=== PATIENT | male | born 1955 | race Caucasian/White ===

== ENCOUNTER 2016-07-18 10:59 | Day surgery (SDC) | payer BC ==
[2016-07-18] VITALS (15 sets, daily range): BP systolic 111–133; BP diastolic 60–68; PULSE 66–82; RESP 16–19
[~2016-07-18 10:59] MED LIST: CEFAZOLIN 1 GM INJ ONE; FENTAnyl 50 MCG/ML VIAL ONE; ROCURONIUM 50 MG INJ ONE; SUCCINYLCHOLINE CHLORIDE 100 MG/5 ML SYG IV ONE
[2016-07-18] MEDS ORDERED: metroNIDAZOLE 500 MG/NS (PMX) 100 ML IVPB ONE (13:30)
[2016-07-18] MEDS ORDERED: MIDAZOLAM 1 MG/ML 2 ML INJ ONE (13:30)
[2016-07-18] MEDS ORDERED: PROPOFOL 20 ML ONE (13:30)
[2016-07-18] MEDS ORDERED: DEXAMETHASONE 4 MG/ML 1 ML INJ ONE (13:31)
[2016-07-18] MEDS ORDERED: ONDANSETRON 4 MG INJ ONE (13:31)
[2016-07-18] MEDS ORDERED: FENTAnyl 50 MCG/ML VIAL ONE (13:31)
[2016-07-18] MEDS ORDERED: LIDOCAINE 2% JELLY 5 ML ONE (13:33)
[2016-07-18] MEDS ORDERED: BUPIVACAINE 0.5% 30 ML VIAL INJ ONE (14:15)
[2016-07-18] MEDS ORDERED: LIDOCAINE 1%/EPI 30 ML INJ INJ ONE (14:15)
[2016-07-18] MEDS ORDERED: MEPERIDINE 25 MG INJ IV PRN (14:30)
[2016-07-18] MEDS ORDERED: EPHEDrine SULFATE 50 MG/5 ML SYG IV PRN (14:30)
[2016-07-18] MEDS ORDERED: HYDROmorphONE (0.2 MG/ML) 10ML SYG IV PRN ×3 (14:30)
[2016-07-18] MEDS ORDERED: DIPHENHYDRAMINE 50 MG INJ IV PRN (14:30)
[2016-07-18] MEDS ORDERED: FENTAnyl 50 MCG/ML VIAL IV PRN (14:30)
[2016-07-18] MEDS ORDERED: ONDANSETRON 4 MG INJ IV PRN (14:30)
[2016-07-18] MEDS ORDERED: BUPIVACAINE 0.5% (SDV) 30 ML INJ ONE (14:35)
[2016-07-18] MEDS ORDERED: LIDOCAINE 1%/EPI 30 ML INJ ONE (14:35)
--- NOTE | 2016-07-18 15:38 | OPPN ---
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
--- NOTE | 2016-07-18 15:39 | PDOCDIS ---
Discharge Instructions DIAGNOSIS Discharge Diagnosis: Transverese colon polyp, fistula in ano CONDITION Patient Condition: Good HOME CARE INSTRUCTIONS: Diet Instructions: Regular ACTIVITY: Activity Restrictions: Slowly Increase Activity Bathing Restrictions: Tub Bath FOLLOW UP/APPOINTMENTS Appointments Call Dr. Zazueta's office ([phone]) to schedule a follow up appointment in 1 week. RAVINDRA ZAZUETA MD Jul 18, 2016 15:39
--- NOTE | 2016-07-18 16:26 | OPR ---
DATE OF OPERATION: 07/18/2016 PREOPERATIVE DIAGNOSES: 1. History of colon polyps. 2. Cruvmqp-ae-dps. POSTOPERATIVE DIAGNOSES: 1. Diminutive polyp in the proximal transverse colon. 2. Right posterior transsphincteric [id number]. PROCEDURE PERFORMED: 1. Colonoscopy with snare polypectomy. 2. Complex fistulotomy, with placement of draining Seton. SURGEON: Dr. Ravindra Zazueta ANESTHESIA: General endotracheal anesthesia. INDICATIONS FOR PROCEDURE: Mr. Alvarez is a 60-year-old gentleman with a history of colon polyps, who previously underwent a fistula surgery in December of 2012. Subsequently, unfortunately, the patient had a recurrent lygeyzn-ot-naw, and is requesting surgical intervention. The various treatment options were discussed with him and he elected to proceed with fistulotomy and placement of Seton. In addition, since the patient has a history of colon polyps and it had been at least 3 years since his last colonoscopy, I recommended he have a screening colonoscopy. Informed consent was obtained prior to the procedure. PROCEDURE IN DETAIL: The patient was brought to the operating room and placed in the supine position on the operating room table. After successful administration of general endotracheal anesthesia, the patient was repositioned in the left lateral decubitus position. Next, after a surgical time-out, a digital rectal examination was performed. This examination was normal. Next, the colonoscope was inserted into the patient's anus and passed proximally all the way to the patient's cecum. Identification of the cecum was confirmed by identification of both the ileocecal valve and the appendiceal orifice. Next, the colonoscope was gently withdrawn. The patient's cecum, ascending, transverse, descending, and sigmoid colon were carefully examined. During this examination the patient was found to have an approximately 3 to 4-mm polyp in his proximal transverse colon. This was removed in its entirety using a hot snare technique. Once hemostasis was assured, the remainder of the patient's colon was carefully examined. Next, the colonoscope was then withdrawn to the patient's rectum, which was examined in both antegrade and retrograde fashion with assistance with the retroflex technique, and this examination was normal. The colonoscope was then removed without event. Next, the patient was repositioned in the high lithotomy position using candy cane stirrups. Following this the patient's perineum and perianal skin were prepped and draped in the usual sterile fashion. Next, the patient underwent an anal block using a combination of 1% lidocaine with epinephrine and 0.5% Marcaine without epinephrine. This 50:50% combination local anesthetic was utilized in such a fashion as to infiltrate the subcutaneous tissue circumferentially at the anal verge. Next, using a Bustillo retractor, the patient's anal canal and distal rectum were examined in more detail. The patient was found to have an external opening of the fistula tract in the right posterior perianal skin. This was almost up on the patient's buttock. Whitish fluid was found to be emitting from this fistula tract. Next, with the Bustillo retractor in place, hydrogen peroxide was injected in the external opening of the fistula tract using an 18-gauge Angiocath. This revealed a posterior midline opening in the patient's anal canal from the bubbling of the hydrogen peroxide communicating with the external opening. Next the fistula probe was then passed from external to internal opening of the fistula and the patient was found to have a transsphincteric [id number]. Bovie electrocautery was then used to divide the skin and subcutaneous tissue medially from the external opening of the fistula tract until we reached the external sphincter. This was carefully dissected and preserved. Next the skin overlying the external sphincter and internal sphincter was then divided, again using Bovie electrocautery. The internal sphincter was then divided up to the internal opening of the fistula tract. This allowed for division of approximately the distal 1/2 of the internal sphincter. Next, the fistula probe was then replaced with 2-vessel loops that were sewn to themselves using 0 silk as a draining Seton. A curet spoon was then used to dbride the fistula tract and a specimen of this was sent off and labeled "fistula contents." Next, the external opening of the fistulotomy was then marsupialized by sewing the base of the fistula tract to the skin edges using interrupted 2-0 Vicryl suture. Bovie electrocautery was then used for hemostasis, as well as obliteration of the internal crypt, as the likely source of the fistula itself. Once hemostasis was assured and all counts were correct, the procedure was complete. Additional local anesthetic was injected at the fistulectomy site, again using the combination of lidocaine and Marcaine. The Bustillo retractor was removed without event. Dry gauze was applied to the patient's perianal skin and secured with paper tape. The patient was then returned to the supine position and anesthesia was discontinued. The patient was extubated in the operating room without complication. The patient was then transferred to the recovery room in stable condition. Total IV fluids given was 800 mL. Estimated blood loss was less than 50 mL. Specimens included a proximal transverse colon polyp, as well as fistula contents. Following the procedure, the patient was given standard post anorectal surgery convalescent instructions, as well as a prescription for Montague for pain. The patient was given instructions to follow up with Dr. Zazueta 1 week following discharge. Dictated By: RAVINDRA MOORE/MAX Conf#: [id number] DID#: [id number] MTDD
== END 2016-07-18 17:55 | disposition home or self-care (01) ==
LOC: SDS 10:59
PROVIDERS: ATTEND Colon & Rectal Surgery
DX: D12.3 Benign neoplasm of transverse colon (principal); K60.5 Anorectal fistula; I10 Essential (primary) hypertension; J44.9 Chronic obstructive pulmonary disease, unspecified; Z86.718 Personal history of other venous thrombosis and embolism
CPT/HCPCS: 45380; 46270; J0330; J0690; J1100; J2250; J2405; J3010

== ENCOUNTER → 2016-12-02 | Outpatient (CLI) | payer BC ==
[2016-12-02 13:06] LABS: ADD SCAN DIFF NO
[2016-12-02 13:19] LABS: BASOPHIL # 0.1 10^3/ul (0.0-0.1); BASOPHILS % 0.8 % (0.0-2.0); EOSINOPHILS # 0.1 10^3/ul (0.0-0.5); EOSINOPHILS % 2.2 % (0.0-7.0); HEMATOCRIT 46.1 % (42.0-52.0); HEMOGLOBIN 16.2 g/dl (14.0-18.0); LYMPHOCYTES % 32.9 % (15.0-51.0); MEAN CORPUSCULAR HEMOGLOBIN 31.2 pg (29.0-33.0); MEAN CORPUSCULAR HGB CONC 35.1 g/dl (32.0-37.0); MEAN CORPUSCULAR VOLUME 88.7 fl (82.0-101.0); MEAN PLATELET VOLUME 9.9 fl (7.4-10.4); MONOCYTE # 0.4 10^3/ul (0.3-0.9); MONOCYTES % 6.5 % (0.0-11.0); NEUTROPHIL # 3.4 10^3/ul (1.6-7.5); NEUTROPHILS % 57.3 % (39.0-77.0); PLATELET COUNT 231 10^3/UL (140-415); RED CELL DISTRIBUTION WIDTH 12.9 % (11.5-14.5)
[2016-12-02 13:25] LABS: ALBUMIN 4.2 g/dl (3.3-4.9)
[2016-12-02 13:26] LABS: POTASSIUM 3.8 mmol/L (3.5-5.1)
[2016-12-02 13:28] LABS: ALBUMIN/GLOBULIN RATIO 1.31; CREATININE 0.71 mg/dl (0.61-1.24); TOTAL PROTEIN 7.4 g/dl (6.1-8.1)
[2016-12-02 13:29] LABS: CALCIUM 9.2 mg/dl (8.4-10.2); CHOL/HDL RATIO 3.8 RATIO
[2016-12-02 13:34] LABS: INR 1.82; PROTIME 21.2 Sec (12.2-14.2); PT RATIO 1.7
== END | disposition home or self-care (01) ==
LOC: LAB 12:50
PROVIDERS: ATTEND Internal Medicine
DX: E78.5 Hyperlipidemia, unspecified (principal); D68.59 Other primary thrombophilia
CPT/HCPCS: 80053; 80061; 85025; 85610

== ENCOUNTER → 2017-01-07 | Outpatient (CLI) | payer BC ==
[2017-01-07 12:34] LABS: ADD SCAN DIFF NO
[2017-01-07 12:36] LABS: BASOPHIL # 0.1 10^3/ul (0.0-0.1); BASOPHILS % 0.6 % (0.0-2.0); EOSINOPHILS # 0.1 10^3/ul (0.0-0.5); EOSINOPHILS % 1.8 % (0.0-7.0); HEMATOCRIT 48.1 % (42.0-52.0); LYMPHOCYTES # 2.3 10^3/ul (0.8-2.9); LYMPHOCYTES % 28.8 % (15.0-51.0); MEAN CORPUSCULAR HEMOGLOBIN 30.9 pg (29.0-33.0); MEAN CORPUSCULAR HGB CONC 35.3 g/dl (32.0-37.0); MEAN CORPUSCULAR VOLUME 87.5 fl (82.0-101.0); MEAN PLATELET VOLUME 9.8 fl (7.4-10.4); MONOCYTE # 0.7 10^3/ul (0.3-0.9); MONOCYTES % 8.3 % (0.0-11.0); NEUTROPHIL # 4.7 10^3/ul (1.6-7.5); NEUTROPHILS % 60.2 % (39.0-77.0); PLATELET COUNT 244 10^3/UL (140-415); RED CELL DISTRIBUTION WIDTH 13.3 % (11.5-14.5); WHITE BLOOD COUNT 7.8 10^3/ul (4.8-10.8)
[2017-01-07 12:54] LABS: ALBUMIN 4.9 g/dl (3.3-4.9); ALBUMIN/GLOBULIN RATIO 1.63; BILIRUBIN,INDIRECT 1.6 mg/dl (0-1.1); BILIRUBIN,TOTAL 1.6 mg/dl (0.2-1.3); CALCIUM 9.7 mg/dl (8.4-10.2); CREATININE 0.81 mg/dl (0.61-1.24); POTASSIUM 3.9 mmol/L (3.5-5.1); TOTAL PROTEIN 7.9 g/dl (6.1-8.1)
[2017-01-07 12:55] LABS: INR 1.74; PROTIME 20.5 Sec (12.2-14.2); PT RATIO 1.6
== END | disposition home or self-care (01) ==
LOC: LAB 12:09
PROVIDERS: ATTEND Internal Medicine
DX: D68.59 Other primary thrombophilia (principal)
CPT/HCPCS: 80053; 85025; 85610

== ENCOUNTER → 2017-09-04 | Outpatient (CLI) | END | disposition home or self-care (01) ==

== ENCOUNTER → 2018-04-15 | Outpatient (CLI) | END | disposition home or self-care (01) ==

== ENCOUNTER → 2018-09-30 | Outpatient (CLI) | payer BC | END | disposition home or self-care (01) | LOC: LAB 09:31 | PROVIDERS: ATTEND Internal Medicine | DX: J44.9 Chronic obstructive pulmonary disease, unspecified (principal); D68.59 Other primary thrombophilia; E78.5 Hyperlipidemia, unspecified | CPT/HCPCS: 71046; 80053; 80061; 84153; 84154; 85025; 85610 ==

== ENCOUNTER 2018-10-20 10:58 | Inpatient (IN) | payer BC ==
[~2018-10-20] VITALS: Ht 180.3 cm; Wt 104.5 kg
[2018-10-20 11:18] VITALS: Ht 180.3 cm; Wt 104.5 kg
[2018-10-20] MEDS ORDERED: SOD CHLORIDE 0.9% 1,000 ML IV STA (11:24)
[2018-10-20] MEDS ORDERED: ONDANSETRON 4 MG INJ IV STA (11:24)
[2018-10-20] MEDS ORDERED: morphine 4 MG/ML VIAL IV STA ×2 (11:24→14:04)
[2018-10-20] MEDS ORDERED: WARF2.5T PO (11:47)
[2018-10-20] MEDS ORDERED: SIMV40TA2 PO (11:47)
[2018-10-20] MEDS ORDERED: WARF10TA PO (11:47)
[2018-10-20] MEDS ORDERED: IOHEXOL 300MG/ML 150 ML BTL ONE (13:32)
[2018-10-20] MEDS ORDERED: SOD CHLORIDE 0.9% 100 ML ONE (13:32)
--- NOTE | 2018-10-20 13:52 | ERD ---
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 The patient describes subjective fevers 1-2 days ago but none currently. The pain is moderate, throbbing and worse with bowel movement. He was sent by his surgeon, Dr. Zazueta for further investigation. ROS All systems reviewed and are negative except as per history of present illness. Medications Home Meds Reported Medications Simvastatin* (Zocor*) 40 Mg Tablet, 40 MG PO QHS, #30 TAB 10/20/18 Warfarin Sodium* (Coumadin*) 10 Mg Tablet, 10 MG PO DAILY, TAB 10/20/18 Warfarin Sodium* (Coumadin*) 2.5 Mg Tablet, 2.5 MG PO DAILY, TAB 10/20/18 Allergies Allergies: Coded Allergies: No Known Allergies (Verified Allergy, Mild, 10/20/18) PMhx/Soc History of Surgery: Yes (RECTAL ABCESS SURGERY ) Anesthesia Reaction: No Hx Neurological Disorder: No Hx Respiratory Disorders: No Hx Cardiac Disorders: Yes (HIGH CHOLESTEROL ) Hx Psychiatric Problems: No Hx Miscellaneous Medical Probl: Yes (H/O DVT ) Hx Alcohol Use: No Hx Substance Use: No Hx Tobacco Use: Yes Smoking Status: Current some day smoker FmHx Family History: No diabetes Physical Exam Vitals Vital Signs Date Temp Pulse Resp B/P (MAP) Pulse Ox O2 O2 Flow FiO2 Time Delivery Rate 10/20/18 68 18 107/63 98 Room Air 12:53 (78) 10/20/18 98.5 65 18 122/57 98 11:18 (78) Physical Exam General: Well developed, well nourished, no acute distress Head: Normocephalic, atraumatic. Eyes: Pupils equally reactive, EOM intact ENT: Moist mucous membranes Neck: Supple, no lymphadenopathy Respiratory: Lungs clear bilaterally, no distress Cardiovascular: RRR, no murmurs, rubs, or gallops Abdominal: Soft, non-tender, non-distended, no peritoneal signs : Digital rectal examination reveals tenderness and mild induration and fluctuance to the posterior aspect, non tender prostate MSK: No edema, no unilateral swelling, 5/5 strength Neurologic: Alert and oriented, moving all extremities, normal speech, no focal weakness, no cerebellar signs Skin: No rash Psych: Normal mood Result Diagram: 10/20/18 1135 10/20/18 1136 Results 24 hrs Laboratory Tests Test 10/20/18 11:35 10/20/18 11:36 White Blood Count 15.7 10^3/ul Red Blood Count 4.78 10^6/ul Hemoglobin 14.6 g/dl Hematocrit 43.1 % Mean Corpuscular Volume 90.2 fl Mean Corpuscular Hemoglobin 30.5 pg Mean Corpuscular Hemoglobin Concent 33.9 g/dl Red Cell Distribution Width 13.2 % Platelet Count 196 10^3/UL Mean Platelet Volume 10.5 fl Immature Granulocytes % 0.600 % Neutrophils % 84.4 % Lymphocytes % 7.9 % Monocytes % 6.7 % Eosinophils % 0.1 % Basophils % 0.3 % Nucleated Red Blood Cells % 0.0 /100WBC Immature Granulocytes # 0.090 10^3/ul Neutrophils # 13.2 10^3/ul Lymphocytes # 1.2 10^3/ul Monocytes # 1.1 10^3/ul Eosinophils # 0.0 10^3/ul Basophils # 0.1 10^3/ul Nucleated Red Blood Cells # 0.0 10^3/ul Prothrombin Time 23.5 Sec Prothrombin Time Ratio 1.8 INR International Normalized Ratio 2.08 Activated Partial Thromboplast Time 46.2 Sec Sodium Level 140 mmol/L Potassium Level 4.1 mmol/L Chloride Level 106 mmol/L Carbon Dioxide Level 28 mmol/L Anion Gap 6 Blood Urea Nitrogen 13 mg/dl Creatinine 0.91 mg/dl Est Glomerular Filtrat Rate mL/min > 60 mL/min Glucose Level 130 mg/dl Calcium Level 9.2 mg/dl Current Medications Medications Dose Sig/Yobani Start Time Status Last (Trade) Ordered Route PRN Stop Time Admin Dose Reason Admin Sodium 1,000 ml @ Q1H STAT 10/20/18 DC 10/20/18 Chloride 1,000 mls/hr IV 11:24 10/20/18 11:36 12:23 Morphine 4 mg ONCE STAT 10/20/18 DC 10/20/18 Sulfate IV 11:24 10/20/18 11:37 (morphine) 11:26 Ondansetron 4 mg ONCE STAT 10/20/18 DC 10/20/18 HCl (Zofran IV 11:24 10/20/18 11:36 Inj) 11:27 IV Flush 10 ml STK-MED 10/20/18 DC (NS 10 ml) ONCE .ROUTE 13:32 10/20/18 13:33 Sodium 100 ml @ ud STK-MED 10/20/18 DC Chloride ONCE .ROUTE 13:32 10/20/18 13:33 Iohexol 150 ml STK-MED 10/20/18 DC (Omnipaque ONCE .ROUTE 13:32 10/20/18 300mg/ ml) 13:33 Morphine 4 mg ONCE STAT 10/20/18 DC 10/20/18 Sulfate IV 14:04 10/20/18 14:10 (morphine) 14:05 Piperacillin 100 ml @ ONCE ONCE 10/20/18 Sod/ 200 mls/hr IVPB 14:30 10/20/18 Tazobactam 14:59 Sod Procedures/MDM EKG, MONITORS, & DIAGNOSTIC IMAGING: CT abdomen and pelvis with IV contrast IMPRESSION: 1. LARGE PERIRECTAL/PERIANAL ABSCESS, MEASURING 7.0 X 7.0 X 5.8 CM WITH ADJACENT FATTY STRANDING. THERE IS FATTY STRANDING INVOLVING THE ADJACENT SUBCUTANEOUS SOFT TISSUES OF THE BUTTOCKS. PRESACRAL AND PERIRECTAL FATTY STRANDING AND FLUID IS NOTED. 2. No evidence of obstruction. The appendix is within normal limits. 3. Generalized ectasia and atherosclerotic disease of the aorta. 4. Multilevel degenerative disease of the lumbosacral spine with grade 1 retrolisthesis of L3-L4 and L4-L5. 5. Multiple bilateral renal cysts. No gross renal/ureteric calculi. No evidence of obstructive uropathy. Call report was made with Dr. Ellis @ 2:10 PM on 09/19/18 RPTAT: AAPP LAB INTERPRETATION: I reviewed the laboratory testing and it shows slight leukocytosis MEDICAL DECISION MAKING: The patient is right at risk for perirectal abscess given clinical exam and history. The patient additionally has history of fistula, consider worsening fistulous tract. CT imaging with IV contrast would be appropriate. At this time the patient has no fever, no indication for antibiotics, continue to monitor and I will discussed the case with the referring surgeon. ER COURSE: * Sirs criteria is not met in the emergency room. CT showing evidence of large abscess. * Broad-spectrum antibiotic in the form of Zosyn provided. * Dr. Zazueta has been paged. * Patient informed of findings and likely surgical intervention CONSULTATION: None DISPOSITION PLAN: Accepting care team and consultations: I discussed the current laboratory data, diagnostic imaging and emergency care provided. Admitting team: Dr. Arias Admitting team indication: Insurance directed Departure Diagnosis: Primary Impression: Perianal abscess Additional Impression: Leukocytosis Leukocytosis type: unspecified Qualified Codes: D72.829 - Elevated white blood cell count, unspecified Condition: Stable ROMEO RECIO MD Oct 20, 2018 13:52
[2018-10-20] MEDS ORDERED: PIPER-TAZO 3.375 GM IV (PMX) 100 ML IVPB ONE (14:30)
[2018-10-20] MEDS ORDERED: ONDANSETRON 4 MG INJ IV PRN ×2 (15:00→19:00)
[2018-10-20] MEDS ORDERED: ACETAMINOPHEN 325 MG TAB PO PRN (15:00)
[2018-10-20] MEDS ORDERED: VANCOMYCIN 1 GM (PMX) 250 ML IVPB ONE (18:30)
[2018-10-20] MEDS ORDERED: VANCOMYCIN IV PER PHARMACY XX SCH (18:30)
[2018-10-20 18:40] VITALS: BP 117/66; PULSE 76; RESP 20
[2018-10-20] MEDS: PIPER-TAZO 3.375 GM IV (PMX) 100 ML IVPB SCH (19:43)
[2018-10-20] MEDS: morphine 4 MG/ML VIAL IV PRN (19:48)
[2018-10-20 20:00] VITALS: BP 116/59; PULSE 62; RESP 18
[2018-10-20] MEDS ORDERED: VANCOMYCIN HCL 2 GM in SOD CHLORIDE 0.9% 500 ML IVPB SCH (20:30)
--- NOTE | 2018-10-20 20:53 | HP ---
DATE OF ADMISSION: 10/20/2018 CHIEF COMPLAINT AND HISTORY OF PRESENT ILLNESS: The patient is a 63-year-old gentleman who is well k nown to me from previous followup with prior history of Teri's gangrene and history of fistula in ano, status post prior surgeries including complex fistulotomy done in 07/18/[address] Manzanares and pinky ng has been doing fairly well. In the last 2 days, he has been having fevers with severe rectal p ain. The patient was seen by Dr. Manzanares and was referred to the emergency room. The patient was seen in the emergency room and had a CAT scan performed confirming large perirectal, perianal abscess and the patient was admitted. REVIEW OF SYSTEMS: HEAD: No headaches or focal weakness or numbness. No history of strokes. EYES: No blurry vision or glaucoma. ENT: Noncontributory. No history of hoarseness. NECK: No history of thyroid disease. CHEST: Smoked a pack a day and has cut down recently. History of sleep apnea on nasal CPAP. CARDIOVASCULAR: No PND, orthopnea. No prior history of [place] or angina. History of hyperlipidemia. GASTROINTESTINAL: No constipation, diarrhea, change in bowel habits. Recent rectal pain as above. No history of rectal bleed. Prior history of colon polyps. GENITOURINARY: No dysuria, hematuria, kidney stones. MEDICATIONS: Include: 1. Simvastatin 40 mg p.o. daily. 2. Coumadin 12.5 mg p.o. daily. PAST MEDICAL HISTORY: The patient does have history of hypercoagulable state with factor V Leiden po sitive. The patient also has chronic venous stasis, dermatitis of lower extremities with prior histo ry of ulcers. SOCIAL HISTORY: The patient works as a nurse's aide. He is , has 7 children. No history of ethanol abuse. Smoking as above. PHYSICAL EXAMINATION: GENERAL: The patient is an average-built male. VITAL SIGNS: Febrile to 100.7, blood pressure 117/66, O2 sats 94% on room air. HEENT: Head is normocephalic. No pallor, cyanosis or icterus. Tongue is coated, moist. NECK: Supple. No thyromegaly, bruits or lymphadenopathy. CHEST: Decreased breath sounds at bases. HEART: S1, S2 heard. No definite gallops. ABDOMEN: Soft, nontender, no hepatosplenomegaly. RECTAL: Deferred at patient's request. EXTREMITIES: A 2+ edema of lower extremities. Homans sign is negative. NEUROLOGIC: No localizing or lateralizing signs. LABORATORY DATA: WBC count 15.7, hematocrit 43.1, platelet 196,000. Sodium 140, potassium 4.1, BUN 13, creatinine 0.91. PT/INR is 2.08, PTT 46.2. DIAGNOSTIC DATA: CT of the abdomen and pelvis shows a large perirectal, perianal abscess measuring 7 x 7 x 5.8 cm with adjacent fatty stranding. Appendix is normal. No evidence of obstruction. IMPRESSION: 1. Perirectal abscess, prior history of Teri's gangrene with fistula. 2. Chronic obstructive pulmonary disease. 3. Obstructive sleep apnea on CPAP. 4. Hyperlipidemia. 5. Chronic venous stasis, dermatitis of lower extremities. 6. Thrombophilia with positive factor V Leiden. PLAN: We will admit the patient to med-surg. Obtain blood cultures to rule out bacteremia. Start t he patient empirically on a course of vancomycin and Zosyn. We will request ID consultation with Dr. Fernández and surgical consultation with Dr. Manzanares. We will follow their recommendations. We will also a rrange for CPAP when he sleeps. Dictated By: JERMAN JAMES MD SR/NTS Conf#: [id number] DID#: [id number] CC: RAVINDRA MANZANARES MD;*End*
[2018-10-20] MEDS: ATORVASTATIN 20 MG TAB PO SCH (21:09)
[2018-10-20] MEDS: ACETAMINOPHEN 325 MG TAB PO PRN (21:40)
[2018-10-21] VITALS (9 sets, daily range): BP systolic 90–110; BP diastolic 46–58; PULSE 61–75; RESP 17–19
[2018-10-21] MEDS: PIPER-TAZO 3.375 GM IV (PMX) 100 ML IVPB SCH ×4 (01:11→17:49)
[2018-10-21] MEDS: morphine 4 MG/ML VIAL IV PRN ×5 (02:00→21:02)
--- NOTE | 2018-10-21 07:07 | CONS ---
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 currently get swab from small ulcer (skin tear) in area continue with vanco/zosyn pt will need surgery and his coumadin has been stopped 2) hyperlipidemia 3) hypercoagulable state Consultation Date/Type/Reason Admit Date/Time Oct 20, 2018 at 14:35 Date of Consultation: Oct 21, 2018 Type of Consult ID Date/Time of Note DATE: 10/21/18 TIME: 07:00 Hx of Present Illness pt admitted due to rectal pain since friday (3 days ago) on friday he noticed some drainage from the site but yesterday and today no drainage noted He denies F, C, NS no scrotal swelling or pain no SOB, cough, sore throat, Past Medical History hypercoagulable state, florentin's gangrene, hyperlipidemia Home Meds Reported Medications Simvastatin* (Zocor*) 40 Mg Tablet, 40 MG PO QHS, #30 TAB 10/20/18 Warfarin Sodium* (Coumadin*) 10 Mg Tablet, 10 MG PO DAILY, TAB 10/20/18 Warfarin Sodium* (Coumadin*) 2.5 Mg Tablet, 2.5 MG PO DAILY, TAB 10/20/18 Medications Current Medications Ondansetron HCl (Zofran Inj) 4 mg BRIDGE ORDER PRN IV NAUSEA/VOMITING; Start 10/20/18 at 15:00; Stop 10/21/18 at 14:59 Acetaminophen (Tylenol Tab) 650 mg ER BRIDGE PRN PO .MILD PAIN 1-3 OR TEMP Last administered on 10/20/18at 17:33; Admin Dose 650 MG; Start 10/20/18 at 15:00; Stop 10/21/18 at 14:59 Vancomycin HCl (Vanco Iv Per Pharmacy) VANCOMYCIN PER PHARMACY PER PROTOCOL XX ; Start 10/20/18 at 18:30 Piperacillin Sod/ Tazobactam Sod 100 ml @ 200 mls/hr Q6 IVPB Last administered on 10/21/18at 06:02; Admin Dose 200 MLS/HR; Start 10/20/18 at 20:00 Morphine Sulfate (morphine) 4 mg Q4H PRN IV .SEVERE PAIN 7-10 Last administered on 10/21/18at 05:41; Admin Dose 4 MG; Start 10/20/18 at 18:30 Acetaminophen (Tylenol Tab) 650 mg Q4H PRN PO .MILD TO MOD PAIN OR T>101 Last administered on 10/20/18at 21:40; Admin Dose 650 MG; Start 10/20/18 at 18:30 Atorvastatin Calcium (Lipitor) 20 mg DAILY@21 PO Last administered on 10/20/18at 21:09; Admin Dose 20 MG; Start 10/20/18 at 21:00 Ondansetron HCl (Zofran Inj) 4 mg Q4H PRN IV NAUSEA AND/OR VOMITING; Start 10/20/18 at 19:00 Vancomycin HCl 1.5 gm/Sodium Chloride 250 ml @ 83.333 mls/ hr Q12H IVPB ; Start 10/21/18 at 08:30 Allergies: Coded Allergies: No Known Allergies (Verified Allergy, Mild, 10/20/18) Past Surgical History ano fistula surgery Social History Smoking Status: Former smoker Exam/Review of Systems Exam Vitals Vital Signs Date Temp Pulse Resp B/P (MAP) Pulse Ox O2 O2 Flow FiO2 Time Delivery Rate 10/21/18 63 98 30 04:28 10/21/18 97.4 18 104/56 02:00 (72) 10/20/18 Room Air 18:40 Intake and Output 10/20/18 10/20/18 10/21/18 1515:00 23:00 07:00 IntakeIntake Total 100 ml 600 ml BalanceBalance 100 ml 600 ml Constitutional: alert, oriented Eyes: nl sclera ENMT: mucosa pink and moist Respiratory: clear to auscultation Cardiovascular: regular rate and rhythm Gastrointestinal: soft, non-tender Genitourinary - Male: other (no scrotal sweling or redness, kadeem-anal area has some swelling on L side and a central small skin tear in crack superior to anus, no redness) Results Result Diagram: 10/20/18 1135 10/20/18 1136 Results 24hrs Laboratory Tests Test 10/20/18 11:35 10/20/18 11:36 White Blood Count 15.7 #H Red Blood Count 4.78 Hemoglobin 14.6 Hematocrit 43.1 Mean Corpuscular Volume 90.2 Mean Corpuscular Hemoglobin 30.5 Mean Corpuscular Hemoglobin Concent 33.9 Red Cell Distribution Width 13.2 Platelet Count 196 # Mean Platelet Volume 10.5 H Immature Granulocytes % 0.600 H Neutrophils % 84.4 H Lymphocytes % 7.9 L Monocytes % 6.7 Eosinophils % 0.1 Basophils % 0.3 Nucleated Red Blood Cells % 0.0 Immature Granulocytes # 0.090 H Neutrophils # 13.2 H Lymphocytes # 1.2 Monocytes # 1.1 H Eosinophils # 0.0 Basophils # 0.1 Nucleated Red Blood Cells # 0.0 Prothrombin Time 23.5 H Prothrombin Time Ratio 1.8 INR International Normalized Ratio 2.08 Activated Partial Thromboplast Time 46.2 H Sodium Level 140 Potassium Level 4.1 Chloride Level 106 Carbon Dioxide Level 28 Anion Gap 6 Blood Urea Nitrogen 13 Creatinine 0.91 Est Glomerular Filtrat Rate mL/min > 60 Glucose Level 130 Calcium Level 9.2 Medications Medication Current Medications Ondansetron HCl (Zofran Inj) 4 mg BRIDGE ORDER PRN IV NAUSEA/VOMITING; Start 10/20/18 at 15:00; Stop 10/21/18 at 14:59 Acetaminophen (Tylenol Tab) 650 mg ER BRIDGE PRN PO .MILD PAIN 1-3 OR TEMP Last administered on 10/20/18at 17:33; Admin Dose 650 MG; Start 10/20/18 at 15:00; Stop 10/21/18 at 14:59 Vancomycin HCl (Vanco Iv Per Pharmacy) VANCOMYCIN PER PHARMACY PER PROTOCOL XX ; Start 10/20/18 at 18:30 Piperacillin Sod/ Tazobactam Sod 100 ml @ 200 mls/hr Q6 IVPB Last administered on 10/21/18 06:02; Admin Dose 200 MLS/HR; Start 10/20/18 at 20:00 Morphine Sulfate (morphine) 4 mg Q4H PRN IV .SEVERE PAIN 7-10 Last administered on 10/21/18at 05:41; Admin Dose 4 MG; Start 10/20/18 at 18:30 Acetaminophen (Tylenol Tab) 650 mg Q4H PRN PO .MILD TO MOD PAIN OR T>101 Last administered on 10/20/18at 21:40; Admin Dose 650 MG; Start 10/20/18 at 18:30 Atorvastatin Calcium (Lipitor) 20 mg DAILY@21 PO Last administered on 10/20/18at 21:09; Admin Dose 20 MG; Start 10/20/18 at 21:00 Ondansetron HCl (Zofran Inj) 4 mg Q4H PRN IV NAUSEA AND/OR VOMITING; Start 10/20/18 at 19:00 Vancomycin HCl 1.5 gm/Sodium Chloride 250 ml @ 83.333 mls/ hr Q12H IVPB ; Start 10/21/18 at 08:30 JOSEPH KENNEDY MD Oct 21, 2018 07:07
[2018-10-21] MEDS: VANCOMYCIN HCL 1.5 GM in SOD CHLORIDE 0.9% 250 ML IVPB SCH ×2 (09:13→21:02)
--- NOTE | 2018-10-21 12:44 | CONS ---
Assessment/Plan Assessment/Plan Assessment/Plan (Daily) Mr. Alvarez presents with a perianal/perirectal abscess. He is on Coumadin at home for a hypercoagulable state and though he has edema in his lower extremities, his venous duplex today is negative for DVT. I've recommended we correct his anticoagulation and I've scheduled him for drainage of his abscess tomorrow evening at 6:30 pm. He has agreed with this plan. Consultation Date/Type/Reason Admit Date/Time Oct 20, 2018 at 14:35 Date of Consultation: Oct 21, 2018 Type of Consult Colorectal Surgery Reason for Consultation Perirectal abscess Date/Time of Note DATE: 10/21/18 TIME: 12:34 Hx of Present Illness Mr. 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 I was unable to identify an obvious source of infection in my office, so I referred him to the Emergency Department for further workup. Once here, he was found to have leukocytosis and CT scan evidence of a large perianal/perirectal abscess. He reports that since arriving here, his pain is under better control and his fevers have resolved. Constitutional: chills, febrile Eyes: no complaints ENT: no complaints Respiratory: no complaints Cardiovascular: no complaints Gastrointestinal: other (Rectal pain) Genitourinary: no complaints Musculoskeletal: no complaints Skin: no complaints Neurologic: no complaints Psychological: no complaints, nl mood/affect Past Medical History Medical History: deep vein thrombosis, other (Hypercoaguable state) Home Meds Reported Medications Simvastatin* (Zocor*) 40 Mg Tablet, 40 MG PO QHS, #30 TAB 10/20/18 Warfarin Sodium* (Coumadin*) 10 Mg Tablet, 10 MG PO DAILY, TAB 10/20/18 Warfarin Sodium* (Coumadin*) 2.5 Mg Tablet, 2.5 MG PO DAILY, TAB 10/20/18 Medications Current Medications Vancomycin HCl (Vanco Iv Per Pharmacy) VANCOMYCIN PER PHARMACY PER PROTOCOL XX ; Start 10/20/18 at 18:30 Piperacillin Sod/ Tazobactam Sod 100 ml @ 200 mls/hr Q6 IVPB Last administered on 10/21/18 06:02; Admin Dose 200 MLS/HR; Start 10/20/18 at 20:00 Morphine Sulfate (morphine) 4 mg Q4H PRN IV .SEVERE PAIN 7-10 Last administered on 10/21/18 09:54; Admin Dose 4 MG; Start 10/20/18 at 18:30 Acetaminophen (Tylenol Tab) 650 mg Q4H PRN PO .MILD TO MOD PAIN OR T>101 Last administered on 10/20/18 21:40; Admin Dose 650 MG; Start 10/20/18 at 18:30 Atorvastatin Calcium (Lipitor) 20 mg DAILY@21 PO Last administered on 10/20/18 21:09; Admin Dose 20 MG; Start 10/20/18 at 21:00 Ondansetron HCl (Zofran Inj) 4 mg Q4H PRN IV NAUSEA AND/OR VOMITING; Start 10/20/18 at 19:00 Vancomycin HCl 1.5 gm/Sodium Chloride 250 ml @ 83.333 mls/ hr Q12H IVPB Last administered on 10/21/18 09:13; Admin Dose 83.333 MLS/HR; Start 10/21/18 at 08:30 Allergies: Coded Allergies: No Known Allergies (Verified Allergy, Mild, 10/20/18) Past Surgical History Two previous anal fistula surgeries Family History Significant Family History: no pertinent family hx Social History Smoking Status: Former smoker Drug Use: none Exam/Review of Systems Exam Vitals Vital Signs Date Temp Pulse Resp B/P (MAP) Pulse Ox O2 O2 Flow FiO2 Time Delivery Rate 10/21/18 98.7 61 19 90/52 (65) 95 Room Air 08:06 10/21/18 30 04:28 Intake and Output 10/20/18 10/20/18 10/21/18 1515:00 23:00 07:00 IntakeIntake Total 100 ml 600 ml OutputOutput Total 300 ml BalanceBalance 100 ml 300 ml Constitutional: alert, oriented, well developed Psych: no complaints, nl mood/affect Head: normocephalic Eyes: nl conjunctiva ENMT: nl external ears & nose Neck: supple Respiratory: clear to auscultation Cardiovascular: regular rate and rhythm, nl pulses Gastrointestinal: soft, non-tender, surgical scars (in right posterior perianal skin) Musculoskeletal: nl extremities to inspection Extremities: normal pulses, edema (in right lower extremity) Neurological: nl mental status, nl speech Skin: nl turgor Results Result Diagram: 10/21/18 0645 10/21/18 0645 Results 24hrs Laboratory Tests Test 10/21/18 06:45 White Blood Count 15.3 H Red Blood Count 4.42 L Hemoglobin 13.4 L Hematocrit 40.4 L Mean Corpuscular Volume 91.4 Mean Corpuscular Hemoglobin 30.3 Mean Corpuscular Hemoglobin Concent 33.2 Red Cell Distribution Width 13.2 Platelet Count 185 Mean Platelet Volume 11.0 H Immature Granulocytes % 0.700 H Neutrophils % 85.3 H Lymphocytes % 7.0 L Monocytes % 6.5 Eosinophils % 0.1 Basophils % 0.4 Nucleated Red Blood Cells % 0.0 Immature Granulocytes # 0.110 H Neutrophils # 13.0 H Lymphocytes # 1.1 Monocytes # 1.0 H Eosinophils # 0.0 Basophils # 0.1 Nucleated Red Blood Cells # 0.0 Prothrombin Time 25.1 H Prothrombin Time Ratio 2.0 INR International Normalized Ratio 2.27 Activated Partial Thromboplast Time 54.8 H Sodium Level 140 Potassium Level 3.8 Chloride Level 108 Carbon Dioxide Level 26 Anion Gap 6 Blood Urea Nitrogen 17 Creatinine 0.89 Est Glomerular Filtrat Rate mL/min > 60 Glucose Level 133 Calcium Level 8.8 Total Bilirubin 1.2 Direct Bilirubin 0.00 Indirect Bilirubin 1.2 H Aspartate Amino Transf (AST/SGOT) 19 Alanine Aminotransferase (ALT/SGPT) 20 Alkaline Phosphatase 83 Total Protein 6.5 Albumin 3.6 Globulin 2.90 Albumin/Globulin Ratio 1.24 Medications Medication Current Medications Vancomycin HCl (Vanco Iv Per Pharmacy) VANCOMYCIN PER PHARMACY PER PROTOCOL XX ; Start 10/20/18 at 18:30 Piperacillin Sod/ Tazobactam Sod 100 ml @ 200 mls/hr Q6 IVPB Last administered on 10/21/18at 06:02; Admin Dose 200 MLS/HR; Start 10/20/18 at 20:00 Morphine Sulfate (morphine) 4 mg Q4H PRN IV .SEVERE PAIN 7-10 Last administered on 10/21/18at 09:54; Admin Dose 4 MG; Start 10/20/18 at 18:30 Acetaminophen (Tylenol Tab) 650 mg Q4H PRN PO .MILD TO MOD PAIN OR T>101 Last administered on 10/20/18at 21:40; Admin Dose 650 MG; Start 10/20/18 at 18:30 Atorvastatin Calcium (Lipitor) 20 mg DAILY@21 PO Last administered on 10/20/18at 21:09; Admin Dose 20 MG; Start 10/20/18 at 21:00 Ondansetron HCl (Zofran Inj) 4 mg Q4H PRN IV NAUSEA AND/OR VOMITING; Start 10/20/18 at 19:00 Vancomycin HCl 1.5 gm/Sodium Chloride 250 ml @ 83.333 mls/ hr Q12H IVPB Last administered on 10/21/18at 09:13; Admin Dose 83.333 MLS/HR; Start 10/21/18 at 08:30 RAVINDRA MANZANARES MD Oct 21, 2018 12:44
--- NOTE | 2018-10-21 13:00 | RADRPT ---
Vent Rate: 64 bpm RR Interval: 0 msec MA Interval: 154 msec QRS Duration: 98 msec QT Interval: 382 msec QTC Interval: 394 msec P-R-T [place]: 63 - 46 - 74 degrees Normal sinus rhythm Normal ECG Electronically Signed By: Dakota Roche
--- NOTE | 2018-10-21 13:45 | PREAC ---
Date/Time of Note Date/Time of Note DATE: 10/21/18 TIME: 13:39 Anesthesia Eval and Record Evaluation Time Pre-Procedure Interview DATE: 10/21/18 TIME: 13:39 Age 63 Sex male NPO: Other (instructed patient that required fasting time is minimum of 8 hours, verbalized understanding.) Preoperative diagnosis Fornier's gangrene, anal fistula Planned procedure proctosigmoidoscopy, I&D perianal/ rectal abscess Past Medical History Past Medical History: Includes Cardio: Dyslipidemia, Other (chronic venous stasis, hypercoagulable state, Factor V Leiden deficiency, thrombophilia, on chronic coumadin therapy. Plan per Dr Zazueta is to correct effects of Coumadin prior to surgery.) Pulm: COPD (cig smoker, last smoked last week. ), Sleep Apnea (on CPAP at home ) GI: Obesity (BMI 32) Heme: Coagulation disorder (Factor V Leiden) Surgery & Anesthesia Issues No known issue (hx 2 anorectal procedures) Meds Anticoagulation: Yes (COUMADIN) Beta Jb within 24 hr: No Reason Beta Jb not given: Pt. not on B-Jb Reported Medications Simvastatin* (Zocor*) 40 Mg Tablet, 40 MG PO QHS, #30 TAB 10/20/18 Warfarin Sodium* (Coumadin*) 10 Mg Tablet, 10 MG PO DAILY, TAB 10/20/18 Warfarin Sodium* (Coumadin*) 2.5 Mg Tablet, 2.5 MG PO DAILY, TAB 10/20/18 Current Medications Vancomycin HCl (Vanco Iv Per Pharmacy) VANCOMYCIN PER PHARMACY PER PROTOCOL XX ; Start 10/20/18 at 18:30 Piperacillin Sod/ Tazobactam Sod 100 ml @ 200 mls/hr Q6 IVPB Last administered on 10/21/18at 12:34; Admin Dose 200 MLS/HR; Start 10/20/18 at 20:00 Morphine Sulfate (morphine) 4 mg Q4H PRN IV .SEVERE PAIN 7-10 Last administered on 10/21/18at 09:54; Admin Dose 4 MG; Start 10/20/18 at 18:30 Acetaminophen (Tylenol Tab) 650 mg Q4H PRN PO .MILD TO MOD PAIN OR T>101 Last administered on 10/20/18at 21:40; Admin Dose 650 MG; Start 10/20/18 at 18:30 Atorvastatin Calcium (Lipitor) 20 mg DAILY@21 PO Last administered on 10/20/18at 21:09; Admin Dose 20 MG; Start 10/20/18 at 21:00 Ondansetron HCl (Zofran Inj) 4 mg Q4H PRN IV NAUSEA AND/OR VOMITING; Start 10/20/18 at 19:00 Vancomycin HCl 1.5 gm/Sodium Chloride 250 ml @ 83.333 mls/ hr Q12H IVPB Last administered on 10/21/18at 09:13; Admin Dose 83.333 MLS/HR; Start 10/21/18 at 08:30 Meds reviewed: Yes Allergies Coded Allergies: No Known Allergies (Verified Allergy, Mild, 10/20/18) Allergies Reviewed: Yes Labs/Studies Labs Reviewed: Other (ASSIGNED ANESTHESIA PROVIDER TO REVIEW PT/INR ON DAY OF SURGERY) Result Diagram: 10/21/1845 10/21/1845 Laboratory Tests 10/21/18 06:45 test: N/A Studies: ECG (NSR RATE 64) Pre-procedure Exam Last vitals Vital Signs Date Temp Pulse Resp B/P (MAP) Pulse Ox O2 O2 Flow FiO2 Time Delivery Rate 10/21/18 98.7 61 19 90/52 (65) 95 Room Air 08:06 10/21/18 30 04:28 Airway: Adequate mouth opening, Adequate thyromental dist Mallampati: Mallampati II Teeth: Normal Lung: Normal Heart: Normal ASA Physical Status ASA physical status: 3 Emergency: None Planned Anesthetic General/MAC: ETT Planned Pain Management Parenteral pain med, Local by surgeon Pre-operative Attestations Prior to commencing anesthesia and surgery, the patient was re-evaluated, there was verification of: *The patient's identity *The results of appropriate recent lab work and preoperative vital signs *The above evaluation not changing prior to induction *Anesthetic plan, risk benefits, alternative and complications discussed with patient/family; questions answered; patient/family understands, accepts and wishes to proceed. JORGE LUIS ALVAREZ Oct 21, 2018 13:45
[2018-10-21] MEDS: NS + KCL 20 MEQ 1,000 ML IV SCH (14:18)
--- NOTE | 2018-10-21 14:18 | PN ---
DATE: 10/21/2018 SUBJECTIVE: The patient complains of severe rectal pain. Denies any nausea, vomiting. Dr. Fernández' ID consultation and recommendations were greatly appreciated. PHYSICAL EXAMINATION: GENERAL: The patient is awake, alert. VITAL SIGNS: Temperature 98.7, blood pressure 90/52, O2 sats 95% on room air. LUNGS: Revealed decreased breath sounds at bases. HEART: S1, S2 heard. No definite gallops. ABDOMEN: Soft. No hepatosplenomegaly. EXTREMITIES: A 1+ edema. Homans negative. LABORATORY DATA: WBC 15.3, hematocrit 40.4. Sodium 140, potassium 3.8, BUN 17, creatinine 0.89. PT /INR is 2.27, PTT is 54.8. DIAGNOSTIC DATA: Doppler venous study was obtained this morning which showed no evidence of acute DV T, small left femoral vein, may be sequelae of prior thrombosis. Normal Doppler flow noted. Chest x -ray shows heart size is normal, lung pruitt clear. IMPRESSION: 1. Perirectal abscess, prior history of Teri's gangrene. 2. Chronic obstructive pulmonary disease. 3. Obstructive sleep apnea on CPAP while he sleeps. 4. Hyperlipidemia. 5. Chronic venous stasis, dermatitis of lower extremities. No evidence of acute deep venous thrombo sis. 6. Thrombophilia with positive factor V Leiden, on chronic Coumadin therapy. PLAN: Case was discussed with Dr. Manzanares early this morning. We will proceed and obtain vascular cons ultation Dr. Pang. We will hold anticoagulants for now. We will follow recommendations per Dr. Carol santos, Dr. Fernández and Dr. Manzanares. Observe for sepsis. Adjust antibiotics pending cultures. Dictated By: JERMAN JAMES MD SR/NTS Conf#: [id number] DID#: [id number] CC: RAVINDRA MANZANARES MD;*EndCC*
[2018-10-21] MEDS: ACETAMINOPHEN 325 MG TAB PO PRN (14:22)
[2018-10-21] MEDS ORDERED: PHYTONADIONE 10 MG in DEXTROSE 5% 50 ML IVPB ONE (15:00)
[2018-10-21] MEDS: PHYTONADIONE (1 MG/ML PO SYG) PO SCH (16:07)
--- NOTE | 2018-10-21 18:09 | CONS ---
DATE OF ADMISSION: 10/20/2018 DATE OF CONSULTATION: 10/21/2018 TYPE OF CONSULTATION: Vascular. REFERRING PHYSICIAN: Mk Arias MD REASON FOR CONSULTATION: History of DVT and he is going to have surgery for perirectal abscess. HISTORY OF PRESENT ILLNESS: This is a very pleasant 63-year-old otherwise fairly healthy gentleman. He is not diabetic. He does not have hypertension. No history of coronary artery disease. He was admitted with perirectal abscess and is scheduled for drainage tomorrow. He has been on Coumadin chr onically because of hypercoagulable disorder. He has factor V Leiden and had a remote history of lef t leg DVT, but has been on Coumadin chronically for recurrent DVT. He essentially was admitted. His Coumadin has been stopped. He had a venous duplex scan of the left lower extremity which shows no D VT, but the femoral vein is very small and that is consistent with previous DVTs, probably some scarr ed and shrunken but no signs of any thrombosis, basically has chronic left femoral nonocclusive DVT. He says he uses compression stockings regularly when he is at home. He does not know what strength they are, just on the left foot. He has no problems on the right. He does note a fairly significant swelling in the left leg when he is sitting or standing if he does not use the stockings. MEDICATIONS PRIOR TO ADMISSION: Consist of: 1. Simvastatin. 2. Warfarin. He is currently also gettin. Vancomycin. 2. Zosyn. 3. Morphine. 4. Tylenol. ALLERGIES: HE HAS NO KNOWN DRUG ALLERGIES. PAST SURGICAL HISTORY: Significant for 2 previous perirectal abscess surgeries. No other surgical h istory. SOCIAL HISTORY: He stopped smoking about a week ago. He is a fairly assistant terminal manager smoker, although he h as not smoked in the past week. He does not drink or use any illicit drugs. He lives with his . He works here at [employer]. FAMILY HISTORY: Noncontributory. REVIEW OF SYSTEMS: He currently has no complaints at present. He was having fevers when he came in, but he said since he started on antibiotics it has resolved. No chest pain, no shortness of breath. No nausea, vomiting, diarrhea. No fever, no chills. No weight gain or weight loss. No abdominal or back pain. He has no pain in his legs. He has chronic left leg swelling and hyperpigmentation. Now that he is in bed, there is not much edema. PHYSICAL EXAMINATION GENERAL: He is an elderly gentleman. He speaks Slovak fluently. VITAL SIGNS: He has been afebrile. His blood pressure is 90/52, heart rate 61, respiratory rate is 19, 95% sat on room air. PERIPHERAL VASCULAR: He has 2+ carotid, radial and brachial pulses bilaterally. LUNGS: Clear. HEART: Regular rate and rhythm. ABDOMEN: Soft, nontender, nondistended. EXTREMITIES: He has 2+ femoral, popliteal pulses bilaterally. DP pulses are 1+, little hard to feel on the left. He has 2+ PT pulses, again stronger on the right than the left. On the right, he has no edema and no significant venous stasis changes. On the left, he has diffuse hyperpigmentation and chronic venous stasis skin changes with early lipodermatosclerosis. No ulcerations. Normal motor a nd sensory function. Has good color. DIAGNOSTIC DATA: Again, I reviewed the venous duplex scan which shows no DVT in the left. The veins are just kind of sclerotic and small probably from the previous DVT. IMPRESSION: Perirectal abscess. He is going to need surgery for drainage tomorrow. Obviously his C oumadin stopped, I would suggest restarting it as soon as possible after the surgery and frequent amb ulation once the surgery was done. There is no need for vena cava filter or any other intervention a t this point. I told him if he starts having new swelling or pain especially in the left leg then ba sically notify as soon as it happens and they could repeat the venous scan to make sure he has not de velop another deep venous thrombosis. I am available if there are any further issues. I will check upon him by tomorrow or Friday. Dictated By: ROSALINDA BEAL/MAX Conf#: [id number] DID#: [id number] CC: MK ARIAS MD; JOSEPH KENNEDY MD; RAVINDRA MANZANARES MD;*EndCC*
[2018-10-21] MEDS: ATORVASTATIN 20 MG TAB PO SCH (21:02)
[2018-10-22] VITALS (19 sets, daily range): BP systolic 103–126; BP diastolic 54–70; PULSE 65–76; RESP 14–18
[2018-10-22] MEDS: NS + KCL 20 MEQ 1,000 ML IV SCH ×2 (00:30→05:49)
[2018-10-22] MEDS: PIPER-TAZO 3.375 GM IV (PMX) 100 ML IVPB SCH ×4 (00:30→18:00)
[2018-10-22] MEDS: HYDROmorphONE 2 MG/ML SYG IV PRN ×2 (02:58→10:16)
--- NOTE | 2018-10-22 06:54 | CONS ---
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 currently get swab from small ulcer (skin tear) in area continue with vanco/zosyn pt will need surgery and his coumadin has been stopped 10/22- pt started to drain and has improved pain will order wound cx of this drainage pt scheduled for I&D later today which I agree with continue with vanco/zosyn 2) hyperlipidemia 3) hypercoagulable state Consultation Date/Type/Reason Admit Date/Time Oct 20, 2018 at 14:35 Initial Consult Date 10/21/18 Type of Consult ID Date/Time of Note DATE: 10/22/18 TIME: 06:51 24 HR Interval Summary Free Text/Dictation pt started getting drainage from anal site overnight and the pain is much improved no N, V, D Exam/Review of Systems Exam Vitals Vital Signs Date Temp Pulse Resp B/P (MAP) Pulse Ox O2 O2 Flow FiO2 Time Delivery Rate 10/22/18 98.2 67 17 104/57 93 02:00 (73) 10/21/18 Room Air 14:00 10/21/18 30 04:28 Intake and Output 10/21/18 10/21/18 10/22/18 1515:00 23:00 07:00 IntakeIntake Total 350 ml 591 ml 1250 ml BalanceBalance 350 ml 591 ml 1250 ml Constitutional: alert, oriented Eyes: nl sclera Respiratory: clear to auscultation Cardiovascular: regular rate and rhythm Gastrointestinal: soft, non-tender Genitourinary - Male: other (grayish drainage noted on tissue around anus but no pus expressed, no redness noted either, swelling remains about the same) Results Result Diagram: 10/21/1845 10/21/1845 Medications Medication Current Medications Vancomycin HCl (Vanco Iv Per Pharmacy) VANCOMYCIN PER PHARMACY PER PROTOCOL XX ; Start 10/20/18 at 18:30 Piperacillin Sod/ Tazobactam Sod 100 ml @ 200 mls/hr Q6 IVPB Last administered on 10/22/18at 05:49; Admin Dose 200 MLS/HR; Start 10/20/18 at 20:00 Acetaminophen (Tylenol Tab) 650 mg Q4H PRN PO .MILD TO MOD PAIN OR T>101 Last administered on 4/10/19at 14:22; Admin Dose 650 MG; Start 10/20/18 at 18:30 Atorvastatin Calcium (Lipitor) 20 mg DAILY@21 PO Last administered on 10/21/18 21:02; Admin Dose 20 MG; Start 10/20/18 at 21:00 Ondansetron HCl (Zofran Inj) 4 mg Q4H PRN IV NAUSEA AND/OR VOMITING Last administered on 10/22/18 02:58; Admin Dose 4 MG; Start 10/20/18 at 19:00 Vancomycin HCl 1.5 gm/Sodium Chloride 250 ml @ 83.333 mls/ hr Q12H IVPB Last administered on 10/21/18 21:02; Admin Dose 83.333 MLS/HR; Start 10/21/18 at 08:30 Potassium Chloride/Sodium Chloride 1,000 ml @ 100 mls/hr Q10H IV Last administered on 10/22/18 05:49; Admin Dose 100 MLS/HR; Start 10/21/18 at 14:30 Phytonadione (Vitamin K) 10 mg DAILY PO Last administered on 10/21/18at 16:07; Admin Dose 10 MG; Start 10/21/18 at 14:30 Miscellaneous Information (*Rx Drug Level Order Reminder*) VANCO TROUGH @ 0,730 0730 ONCE XX ; Start 10/22/18 at 07:30; Stop 10/22/18 at 07:31 Hydromorphone HCl (Dilaudid) 2 mg Q4H PRN IV SEVERE PAIN LEVEL 7-10 Last administered on 10/22/18 02:58; Admin Dose 2 MG; Start 10/21/18 at 21:30 JOSEPH KENNEDY MD Oct 22, 2018 06:54
[2018-10-22] MEDS ORDERED: DESFLURANE 15 MIN ONE (07:00)
[2018-10-22] MEDS: PHYTONADIONE (1 MG/ML PO SYG) PO SCH (09:00)
[2018-10-22] MEDS: VANCOMYCIN HCL 1.5 GM in SOD CHLORIDE 0.9% 250 ML IVPB SCH (10:12)
[2018-10-22] MEDS: DEXTROSE 5%-0.45% NACL 1,000 ML IV SCH (13:50)
--- NOTE | 2018-10-22 17:50 | PN ---
DATE: 10/22/2018 SUBJECTIVE: The patient started to drain from the abscess brownish colored liquid and has improved t he patient. He denies any chest pain or shortness of breath. PHYSICAL EXAMINATION VITAL SIGNS: Temperature 98.2, blood pressure 104/57, O2 sats 98% on room air. LUNGS: Clinically clear. HEART: S1, S2, no definite gallops. ABDOMEN: Soft, nontender, no hepatosplenomegaly. EXTREMITIES: Trace edema. Aranza's sign is negative. Dr. Pang' vascular consultation and recommendation greatly appreciated. No vascular intervention at this point. LABORATORY DATA: WBC count 13.4, hematocrit 37.6, potassium 3.8, BUN 15, creatinine 0.89. PT/INR 1. 27, PTT is 40.5 after vitamin K. IMPRESSION: 1. Perirectal abscess draining. 2. Chronic obstructive pulmonary disease. 3. Obstructive sleep apnea. 4. Hyperlipidemia. 5. Chronic venous stasis dermatitis of lower extremities, prior history of DVT, no evidence of acute thrombosis. 6. Thrombophilia with positive factor V Leiden. PLAN: We will continue surgical recommendations by Dr. Zazueta. We will inform Dr. Zazueta regarding the abscess which started to drain. Observe for sepsis. Continue IV antibiotics and observe. Dictated By: JERMAN JAMES MD SR/NTS Conf#: [id number] DID#: [id number]
[2018-10-22] MEDS ORDERED: LIDOCAINE 1% (MPF) 30 ML INJ ONE (18:30)
[2018-10-22] MEDS ORDERED: CEFAZOLIN 1 GM INJ ONE (18:45)
[2018-10-22] MEDS ORDERED: GLYCOPYRROLATE 0.4 MG INJ ONE (18:45)
[2018-10-22] MEDS ORDERED: ROCURONIUM 50 MG INJ ONE (18:45)
[2018-10-22] MEDS ORDERED: PROPOFOL 20 ML ONE (18:45)
[2018-10-22] MEDS ORDERED: DEXAMETHASONE 4 MG/ML 5 ML INJ ONE (18:46)
[2018-10-22] MEDS ORDERED: NEOSTIGMINE 3 MG/3 ML SYRINGE ONE (18:46)
[2018-10-22] MEDS ORDERED: MIDAZOLAM 1 MG/ML 2 ML INJ ONE (18:46)
[2018-10-22] MEDS ORDERED: FENTAnyl 50 MCG/ML VIAL ONE (18:46)
[2018-10-22] MEDS ORDERED: ONDANSETRON 4 MG INJ ONE (18:46)
[2018-10-22] MEDS ORDERED: LIDOCAINE 1%/EPI (1:100,000) (MDV) 20 ML ONE (19:13)
[2018-10-22] MEDS ORDERED: BUPIVACAINE 0.5% (SDV) 30 ML INJ ONE (19:13)
--- NOTE | 2018-10-22 19:51 | PAC ---
Date/Time of Note Date/Time of Note DATE: 10/22/18 TIME: 19:50 Post-Anesthesia Notes Post-Anesthesia Note Last documented vital signs Vital Signs Date Temp Pulse Resp B/P (MAP) Pulse Ox O2 O2 Flow FiO2 Time Delivery Rate 10/22/18 99.2 65 18 103/57 94 14:27 (72) 10/21/18 Room Air 14:00 10/21/18 30 04:28 Activity: WNL Respiratory function: WNL Cardiovascular function: WNL Mental status: Baseline Pain reasonably controlled: Yes Hydration appropriate: Yes Nausea/Vomiting absent: Yes Domingo Su M.D. Oct 22, 2018 19:51
--- NOTE | 2018-10-22 19:56 | OPR ---
Date/Time of Note Date/Time of Note DATE: 10/22/18 TIME: 19:41 Operative Report Procedure Date: Oct 22, 2018 Preoperative Diagnosis Perirectal abscess Postoperative Diagnosis Perirectal abscess with fistula Operation/Procedure Performed Incision/Drainage of perirectal/ischiorectal abscess Placement of Draining seton Proctosigmoidoscopy Surgeon see signature line Cap Maker n/a Anesthesia Type: general Estimated Blood Loss: minimal Transfusion none Specimen Wound culture Grafts/Implants none Tubes/Drains Draining seton in fistula Complications none Pt Condition Post Procedure: stable Disposition: PACU Procedure Description The patient was brought to the operating room and placed in the supine position on the operating room table. Next, after successful adminsitration of general anesthesia and placement of an endotracheal tube, the patient was repositioned in the low lithotomy position using Farhad stirrups. Next, after a surgical "timeout," a digital rectal examination was performed using a lubricated finger. This revealed right posterior scarring in the anal canal and perianal skin. Within this scar, an abscess was draining via the scar in the right posterior perianal skin. A culture swab was used to culture the abscess cavity via this opening in the perianal skin. Next, a rigid proctosigmoidoscopy was performed to a distance of 12 cm from the anal verge. This revealed a normal rectum. The proctoscope was removed without difficulty. Next, the patient's perianal skin was prepped and draped in the usual, sterile fashion. Next, an anal block was performed using a combination of 1% Lidocaine with epinephrine and 0.5% Marcaine without. Using this 50:50% combination anesthetic, local anesthesia was injected into the subcutaneous tissues at the anal verge circumferentially and in the skin in the right posterior perianal skin. Next, once maximum anal sphincter relaxation was achieved, Bustillo retractors were used to examine the anal canal and distal rectum in more detail. This revealed the aforementioned scarring in the right posterior anal canal from his previous fistula surgeries. Then, with the Bustillo retractor in place, hydrogen peroxide was injected in to the draining abscess in the right posterior perianal scar. This revealed bubbling of hydrogen peroxide in the apex of the anal scar near the dentate line, indicating a recurrent fistula. A fistula probe was then placed from the external opening in the perianal skin to the opening in the anal canal and replaced with a vessel loop as a draining seton. This was secured by sewing it to itself using O silk sutures. I then probed the abscess via the external opening and confirmed that the abscess communicated easily with this draining seton. Next, the Bustillo retractor was removed and additional local anesthesia was injected at the external opening in the skin and at the anal verge circumferentially. Dry gauze was then applied to the perianal skin and secured with paper tape. The patient was then returned to the supine position, anesthesia was discontinued and he was extubated without complication. He was transferred to the recovery room in stable condition. RAVINDRA MANZANARES MD Oct 22, 2018 19:54
[2018-10-22] MEDS ORDERED: TRIMETHOBENZAMIDE 100 MG/ML VIAL IM PRN (20:00)
[2018-10-22] MEDS ORDERED: LABETALOL HCL 20MG INJ IV PRN (20:00)
[2018-10-22] MEDS ORDERED: MEPERIDINE 25 MG INJ IV PRN (20:00)
[2018-10-22] MEDS ORDERED: hydrALAzine 20 MG INJ IV PRN (20:00)
[2018-10-22] MEDS ORDERED: DIPHENHYDRAMINE 50 MG INJ IV PRN (20:00)
[2018-10-22] MEDS ORDERED: IPRATROPIUM (NEB) 0.5 MG/2.5 ML AMP HHN PRN (20:00)
[2018-10-22] MEDS ORDERED: ALBUTEROL 0.083% (NEB) 2.5 MG/3 ML AMP HHN PRN (20:00)
[2018-10-22] MEDS ORDERED: FENTAnyl 50 MCG/ML VIAL IV PRN ×3 (20:00)
[2018-10-22] MEDS ORDERED: EPHEDrine SULFATE 50 MG/5 ML SYG IV PRN (20:00)
[2018-10-22] MEDS ORDERED: ONDANSETRON 4 MG INJ IV PRN (20:00)
[2018-10-22] MEDS ORDERED: OXYCODONE/ACETAMINOPHEN (5/325) TAB PO PRN ×2 (20:00)
[2018-10-22] MEDS ORDERED: HYDROmorphONE 1 MG/5 ML IV SYRINGE IV PRN ×3 (20:00)
[2018-10-22] MEDS ORDERED: MIDAZOLAM 1 MG/ML 2 ML INJ IV PRN (20:00)
[2018-10-22] MEDS: ATORVASTATIN 20 MG TAB PO SCH (21:43)
[2018-10-22] MEDS: VANCOMYCIN HCL 1.75 GM in SOD CHLORIDE 0.9% 500 ML IVPB SCH (21:43)
[2018-10-23] MEDS: PIPER-TAZO 3.375 GM IV (PMX) 100 ML IVPB SCH ×4 (00:50→17:43)
[2018-10-23] MEDS: DEXTROSE 5%-0.45% NACL 1,000 ML IV SCH ×2 (00:50→14:50)
[2018-10-23 02:00] VITALS: BP 118/66; PULSE 62; RESP 18
--- NOTE | 2018-10-23 06:57 | CONS ---
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 to abscess cx taken and pending if no MRSA found over weekend to stop vanco then 2) hyperlipidemia 3) hypercoagulable state Consultation Date/Type/Reason Admit Date/Time Oct 20, 2018 at 14:35 Initial Consult Date 10/21/18 Type of Consult ID Date/Time of Note DATE: 10/23/18 TIME: 06:56 24 HR Interval Summary Free Text/Dictation pt has no rectal pain no stools still no N, V Exam/Review of Systems Exam Vitals Vital Signs Date Temp Pulse Resp B/P (MAP) Pulse Ox O2 O2 Flow FiO2 Time Delivery Rate 10/23/18 97.6 62 18 118/66 97 Room Air 02:00 (83) 10/22/18 2.0 23:30 10/21/18 30 04:28 Intake and Output 10/22/18 10/22/18 10/23/18 1515:00 23:00 07:00 IntakeIntake Total 950 ml 660 ml 1700 ml OutputOutput Total 10 ml 1800 ml BalanceBalance 950 ml 650 ml -100 ml Constitutional: alert, oriented ENMT: mucosa pink and moist Respiratory: clear to auscultation Cardiovascular: regular rate and rhythm Gastrointestinal: soft, non-tender Results Result Diagram: 10/22/18 0740 10/22/18 0740 Results 24hrs Laboratory Tests Test 10/22/18 07:40 White Blood Count 13.4 H Red Blood Count 4.18 L Hemoglobin 12.7 L Hematocrit 37.6 L Mean Corpuscular Volume 90.0 Mean Corpuscular Hemoglobin 30.4 Mean Corpuscular Hemoglobin Concent 33.8 Red Cell Distribution Width 13.2 Platelet Count 186 Mean Platelet Volume 11.4 H Immature Granulocytes % 0.700 H Neutrophils % 81.6 H Segmented Neutrophils % (Manual) 80 H Band Neutrophils % (Manual) 3 Lymphocytes % 10.2 L Lymphocytes % (Manual) 8 L Reactive Lymphocytes % (Manual) 1 H Monocytes % 6.9 Monocytes % (Manual) 7 Eosinophils % 0.3 Basophils % 0.3 Basophils % (Manual) 1 Nucleated Red Blood Cells % 0.0 Immature Granulocytes # 0.090 H Neutrophils # 11.0 H Neutrophils # (Manual) 10.8 H Band Neutrophils # 0.4 Lymphocytes (Manual) 1.0 Lymphocytes # 1.4 Reactive Lymphocytes # 0.1 H Monocytes # 0.9 Monocytes # (Manual) 0.9 Eosinophils # 0.0 Basophils # 0.0 Basophils # (Manual) 0.1 H Nucleated Red Blood Cells # 0.0 Platelet Estimate NORMAL Giant Platelets 1 H Polychromasia 1+ Anisocytosis 1+ Microcytosis 1+ Prothrombin Time 16.0 #H Prothrombin Time Ratio 1.3 INR International Normalized Ratio 1.27 Activated Partial Thromboplast Time 40.5 H Sodium Level 137 Potassium Level 3.8 Chloride Level 105 Carbon Dioxide Level 24 Anion Gap 8 Blood Urea Nitrogen 15 Creatinine 0.89 Est Glomerular Filtrat Rate mL/min > 60 Glucose Level 112 Calcium Level 8.4 Magnesium Level 2.2 Vancomycin Level Trough 7.5 L Medications Medication Current Medications Vancomycin HCl (Vanco Iv Per Pharmacy) VANCOMYCIN PER PHARMACY PER PROTOCOL XX ; Start 10/20/18 at 18:30 Piperacillin Sod/ Tazobactam Sod 100 ml @ 200 mls/hr Q6 IVPB Last administered on 10/23/18 05:23; Admin Dose 200 MLS/HR; Start 10/20/18 at 20:00 Acetaminophen (Tylenol Tab) 650 mg Q4H PRN PO .MILD TO MOD PAIN OR T>101 Last administered on 10/21/18at 14:22; Admin Dose 650 MG; Start 10/20/18 at 18:30 Atorvastatin Calcium (Lipitor) 20 mg DAILY@21 PO Last administered on 10/22/18 21:43; Admin Dose 20 MG; Start 10/20/18 at 21:00 Ondansetron HCl (Zofran Inj) 4 mg Q4H PRN IV NAUSEA AND/OR VOMITING Last administered on 10/22/18 02:58; Admin Dose 4 MG; Start 10/20/18 at 19:00 Phytonadione (Vitamin K) 10 mg DAILY PO Last administered on 4/10/19at 16:07; Admin Dose 10 MG; Start 10/21/18 at 14:30 Vancomycin HCl 1.75 gm/Sodium Chloride 500 ml @ 125 mls/hr Q12H IVPB Last administered on 10/22/18at 21:43; Admin Dose 125 MLS/HR; Start 10/22/18 at 21:00 Dextrose/Sodium Chloride 1,000 ml @ 75 mls/hr [id number] IV Last administered on 10/22/18at 13:50; Admin Dose 75 MLS/HR; Start 10/22/18 at 11:30 Acetaminophen/ Hydrocodone Bitart ([place] (5/325)) 1 tab Q4H PRN PO MODERATE PAIN LEVEL 4-6; Start 10/22/18 at 20:00 JOSEPH KENNEDY MD Oct 23, 2018 06:57
[2018-10-23 07:59] VITALS: BP 114/68; PULSE 63; RESP 17
[2018-10-23] MEDS: DOCUSATE SODIUM 100 MG CAP PO SCH ×2 (09:51→21:31)
[2018-10-23] MEDS: PHYTONADIONE (1 MG/ML PO SYG) PO SCH (09:52)
[2018-10-23] MEDS: VANCOMYCIN HCL 1.75 GM in SOD CHLORIDE 0.9% 500 ML IVPB SCH ×2 (09:53→21:31)
[2018-10-23 15:20] VITALS: BP 130/59; PULSE 66; RESP 17
[2018-10-23] MEDS ORDERED: WARFARIN 7.5 MG TAB PO ONE (17:00)
[2018-10-23 20:00] VITALS: BP 120/59; RESP 18
[2018-10-23] MEDS: ATORVASTATIN 20 MG TAB PO SCH (21:31)
[2018-10-23] MEDS: HYDROCODONE/APAP (5/325) TAB PO PRN (21:39)
[2018-10-24] MEDS: PIPER-TAZO 3.375 GM IV (PMX) 100 ML IVPB SCH ×5 (01:36→23:55)
[2018-10-24 02:00] VITALS: BP 101/50; PULSE 56; RESP 18
[2018-10-24] MEDS: DEXTROSE 5%-0.45% NACL 1,000 ML IV SCH ×3 (05:17→21:14)
--- NOTE | 2018-10-24 07:06 | CONS ---
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 to abscess cx taken and pending if no MRSA found over weekend to stop vanco then 10/24 - nor MRSA e.coli +esbl in original kadeem-rectal culture which was prior to abscess draining or surgical I&D but it is sensitive to zosyn c.alb is present from abscess drainage and original wound cx micro has not yet plated the surgical wound cx and will need to locate it d/c vanco, continue zosyn and start diflucan 2) hyperlipidemia 3) hypercoagulable state Consultation Date/Type/Reason Admit Date/Time Oct 20, 2018 at 14:35 Initial Consult Date 10/21/18 Type of Consult ID Date/Time of Note DATE: 10/24/18 TIME: 06:58 24 HR Interval Summary Free Text/Dictation doing well no new problems Exam/Review of Systems Exam Vitals Vital Signs Date Temp Pulse Resp B/P (MAP) Pulse Ox O2 O2 Flow FiO2 Time Delivery Rate 10/24/18 21 05:16 10/24/18 97.7 56 18 101/50 95 Room Air 02:00 (67) 10/22/18 2.0 23:30 Intake and Output 10/23/18 10/23/18 10/24/18 1515:00 23:00 07:00 IntakeIntake Total 1625 ml 825 ml 1875 ml OutputOutput Total 360 ml 2100 ml BalanceBalance 1265 ml 825 ml -225 ml Results Result Diagram: 10/24/18 0510/24/18510 Results 24hrs Laboratory Tests Test 10/24/18 05:11 10/24/18 05:12 White Blood Count 15.1 H Red Blood Count 4.09 L Hemoglobin 12.2 L Hematocrit 36.1 L Mean Corpuscular Volume 88.3 Mean Corpuscular Hemoglobin 29.8 Mean Corpuscular Hemoglobin Concent 33.8 Red Cell Distribution Width 12.7 Platelet Count 240 # Mean Platelet Volume 11.3 H Immature Granulocytes % 0.700 H Neutrophils % Lymphocytes % Monocytes % Eosinophils % Basophils % Nucleated Red Blood Cells % 0.0 Immature Granulocytes # 0.110 H Neutrophils # Lymphocytes # Monocytes # Eosinophils # Basophils # Nucleated Red Blood Cells # Sodium Level 141 Potassium Level 3.8 Chloride Level 109 Carbon Dioxide Level 25 Anion Gap 7 Blood Urea Nitrogen Pending Creatinine Pending Est Glomerular Filtrat Rate mL/min Pending Glucose Level Pending Calcium Level Pending Prothrombin Time 14.6 Prothrombin Time Ratio 1.1 INR International Normalized Ratio 1.13 Medications Medication Current Medications Vancomycin HCl (Vanco Iv Per Pharmacy) VANCOMYCIN PER PHARMACY PER PROTOCOL XX ; Start 10/20/18 at 18:30 Piperacillin Sod/ Tazobactam Sod 100 ml @ 200 mls/hr Q6 IVPB Last administered on 10/24/18 06:39; Admin Dose 200 MLS/HR; Start 10/20/18 at 20:00 Acetaminophen (Tylenol Tab) 650 mg Q4H PRN PO .MILD TO MOD PAIN OR T>101 Last administered on 10/21/18 14:22; Admin Dose 650 MG; Start 10/20/18 at 18:30 Atorvastatin Calcium (Lipitor) 20 mg DAILY@21 PO Last administered on 10/23/18 21:31; Admin Dose 20 MG; Start 10/20/18 at 21:00 Ondansetron HCl (Zofran Inj) 4 mg Q4H PRN IV NAUSEA AND/OR VOMITING Last administered on 10/22/18 02:58; Admin Dose 4 MG; Start 10/20/18 at 19:00 Vancomycin HCl 1.75 gm/Sodium Chloride 500 ml @ 125 mls/hr Q12H IVPB Last administered on 10/23/18 21:31; Admin Dose 125 MLS/HR; Start 10/22/18 at 21:00 Dextrose/Sodium Chloride 1,000 ml @ 75 mls/hr [id number] IV Last administered on 10/24/18 05:17; Admin Dose 75 MLS/HR; Start 10/22/18 at 11:30 Acetaminophen/ Hydrocodone Bitart ([place] (5/325)) 1 tab Q4H PRN PO MODERATE PAIN LEVEL 4-6 Last administered on 4/12/19at 21:39; Admin Dose 1 TAB; Start 10/22/18 at 20:00 Docusate Sodium (Colace) 100 mg BID PO Last administered on 10/23/18at 21:31; Admin Dose 100 MG; Start 10/23/18 at 09:00 Miscellaneous Information (*Rx Drug Level Order Reminder*) VANCO TROUGH @ 0,800 0800 ONCE XX ; Start 10/24/18 at 08:00; Stop 10/24/18 at 08:01 JOSEPH KENNEDY MD Oct 24, 2018 07:06
[2018-10-24 08:16] VITALS: BP 101/61; PULSE 46; RESP 20
[2018-10-24] MEDS: FLUCONAZOLE 200 MG TAB PO SCH (08:46)
[2018-10-24] MEDS: DOCUSATE SODIUM 100 MG CAP PO SCH ×2 (08:46→20:32)
[2018-10-24 10:38] VITALS: PULSE 55
[2018-10-24 14:26] VITALS: BP 134/64; PULSE 89; RESP 20
[2018-10-24] MEDS: HYDROCODONE/APAP (5/325) TAB PO PRN (15:02)
[2018-10-24] MEDS ORDERED: WARFARIN 10 MG TAB PO ONE (17:00)
[2018-10-24 20:00] VITALS: BP 112/68; PULSE 62; RESP 17
[2018-10-24] MEDS: ATORVASTATIN 20 MG TAB PO SCH (20:32)
--- NOTE | 2018-10-24 23:31 | PN ---
DATE: 10/24/2018 SUBJECTIVE: The patient complains of mild pain in the perirectal area, did have a bowel movement tod ay. Denies any fever or chills. Requesting sitz bath. PHYSICAL EXAMINATION: bath. VITAL SIGNS: Temperature 97.9, blood pressure 112/68, O2 sats 96% on room air. LUNGS: Clinically clear. ABDOMEN: Soft, nontender, no hepatosplenomegaly. EXTREMITIES: No edema. LABORATORY DATA: WBC count 15.1, hematocrit 36.1, potassium 3.8. IMPRESSION: 1. Prior history of Teri gangrene with perirectal abscess, status post incision and drainage wit h evidence of enterococcus, E. coli and Vero albicans on the cultures. 2. Chronic obstructive pulmonary disease. 3. Obstructive sleep apnea. 4. Hyperlipidemia. 5. Chronic stasis dermatitis, both lower extremities and prior history of deep venous thrombosis. N o evidence of acute deep venous thrombosis right now. 6. Thrombophilia with positive factor V Leiden. PLAN: Dr. Fernández' ID recommendation greatly appreciated and we will follow recommendations. The patie nt will be continued on Coumadin. INR was 1.13. We will give him 10 mg p.o. today and recheck the P T, INR tomorrow. We will also initiate sitz baths 4 times a day. Dictated By: JERMAN JAMES MD, SR/NTS Conf#: [id number] DID#: [id number]
[2018-10-25 02:00] VITALS: BP 106/60; PULSE 51; RESP 18
[2018-10-25 02:30] VITALS: PULSE 55
[2018-10-25 03:00] VITALS: PULSE 64
[2018-10-25] MEDS: PIPER-TAZO 3.375 GM IV (PMX) 100 ML IVPB SCH ×3 (06:08→18:10)
[2018-10-25 08:19] VITALS: BP 112/56; PULSE 53; RESP 17
[2018-10-25] MEDS: DOCUSATE SODIUM 100 MG CAP PO SCH ×2 (08:47→20:42)
[2018-10-25] MEDS: FLUCONAZOLE 200 MG TAB PO SCH (08:47)
--- NOTE | 2018-10-25 09:06 | CONS ---
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 to abscess cx taken and pending if no MRSA found over weekend to stop vanco then 10/24 - nor MRSA e.coli +esbl in original kadeem-rectal culture which was prior to abscess draining or surgical I&D but it is sensitive to zosyn c.alb is present from abscess drainage and original wound cx micro has not yet plated the surgical wound cx and will need to locate it d/c vanco, continue zosyn and start diflucan 10/25 - abscess cx has GNR, ID is pending drainage cx prior to surgery has grown acinetobacter +MDRO, continue with zosyn but had bactrim for the acinetobacter WBC has returned to WNL, to repeat tomorrow bactrim can increase coumadin levels and will need to monitor INR while on the combination 2) hyperlipidemia 3) hypercoagulable state Consultation Date/Type/Reason Admit Date/Time Oct 20, 2018 at 14:35 Initial Consult Date 10/21/18 Type of Consult ID Date/Time of Note DATE: 10/25/18 TIME: 09:04 Exam/Review of Systems Exam Vitals Vital Signs Date Temp Pulse Resp B/P (MAP) Pulse Ox O2 O2 Flow FiO2 Time Delivery Rate 10/25/18 97.9 53 17 112/56 95 Room Air 08:19 (74) 10/24/18 21 05:16 10/22/18 2.0 23:30 Intake and Output 10/24/18 10/24/18 10/25/18 1515:00 23:00 07:00 IntakeIntake Total 1000 ml 1680 ml 1225 ml OutputOutput Total 1100 ml BalanceBalance 1000 ml 1680 ml 125 ml Results Result Diagram: 10/25/18 0558 10/25/18 0558 Results 24hrs Laboratory Tests Test 10/25/18 05:58 White Blood Count 9.4 # Red Blood Count 4.25 L Hemoglobin 12.5 L Hematocrit 37.6 L Mean Corpuscular Volume 88.5 Mean Corpuscular Hemoglobin 29.4 Mean Corpuscular Hemoglobin Concent 33.2 Red Cell Distribution Width 13.2 Platelet Count 244 Mean Platelet Volume 10.7 H Immature Granulocytes % 5.400 H Neutrophils % Segmented Neutrophils % (Manual) 48 Band Neutrophils % (Manual) 11 H Lymphocytes % Lymphocytes % (Manual) 29 Reactive Lymphocytes % (Manual) 1 H Monocytes % Monocytes % (Manual) 3 Eosinophils % Eosinophils % (Manual) 1 Basophils % Basophils % (Manual) 1 Metamyelocytes % (manual) 1 H Myelocytes % (Manual) 5 H Nucleated Red Blood Cells % 0.0 Immature Granulocytes # 0.510 H Neutrophils # Neutrophils # (Manual) 4.6 Band Neutrophils # 1.0 H Lymphocytes (Manual) 2.7 Lymphocytes # Reactive Lymphocytes # 0.0 Monocytes # Monocytes # (Manual) 0.2 L Eosinophils # Basophils # Basophils # (Manual) 0.0 Metamyelocytes # 0.0 Myelocytes # 0.4 H Nucleated Red Blood Cells # Platelet Estimate NORMAL Giant Platelets 4 H Poikilocytosis 1+ Anisocytosis 1+ Target Cells 1+ Prothrombin Time 14.3 Prothrombin Time Ratio 1.1 INR International Normalized Ratio 1.10 Sodium Level 141 Potassium Level 4.0 Chloride Level 108 Carbon Dioxide Level 26 Anion Gap 7 Blood Urea Nitrogen 19 Creatinine 0.98 Est Glomerular Filtrat Rate mL/min > 60 Glucose Level 144 # Calcium Level 8.9 Medications Medication Current Medications Piperacillin Sod/ Tazobactam Sod 100 ml @ 200 mls/hr Q6 IVPB Last administered on 10/25/18at 06:08; Admin Dose 200 MLS/HR; Start 10/20/18 at 20:00 Acetaminophen (Tylenol Tab) 650 mg Q4H PRN PO .MILD TO MOD PAIN OR T>101 Last administered on 10/21/18 14:22; Admin Dose 650 MG; Start 10/20/18 at 18:30 Atorvastatin Calcium (Lipitor) 20 mg DAILY@21 PO Last administered on 10/24/18 20:32; Admin Dose 20 MG; Start 10/20/18 at 21:00 Ondansetron HCl (Zofran Inj) 4 mg Q4H PRN IV NAUSEA AND/OR VOMITING Last administered on 10/22/18 02:58; Admin Dose 4 MG; Start 10/20/18 at 19:00 Dextrose/Sodium Chloride 1,000 ml @ 75 mls/hr [id number] IV Last administered on 10/24/18 21:14; Admin Dose 75 MLS/HR; Start 10/22/18 at 11:30 Acetaminophen/ Hydrocodone Bitart ([place] (5/325)) 1 tab Q4H PRN PO MODERATE PAIN LEVEL 4-6 Last administered on 10/24/18 15:02; Admin Dose 1 TAB; Start 10/22/18 at 20:00 Docusate Sodium (Colace) 100 mg BID PO Last administered on 10/25/18 08:47; Admin Dose 100 MG; Start 10/23/18 at 09:00 Fluconazole (Diflucan) 200 mg DAILY PO Last administered on 10/25/18at 08:47; Admin Dose 200 MG; Start 10/24/18 at 09:00 Trimethoprim/ Sulfamethoxazole (Bactrim (Ds)) 1 tab BID PO ; Start 10/25/18 at 09:30; Status UNJOSEPH MILLER MD Oct 25, 2018 09:06
[2018-10-25] MEDS: TRIMETHOPRIM/SULFAMETHOX (DS) TAB PO SCH ×2 (09:58→20:42)
[2018-10-25] MEDS: DEXTROSE 5%-0.45% NACL 1,000 ML IV SCH (12:30)
[2018-10-25 14:07] VITALS: BP 129/63; PULSE 65; RESP 17
[2018-10-25] MEDS ORDERED: WARFARIN 7.5 MG TAB PO ONE (17:00)
[2018-10-25 20:35] VITALS: BP 130/67; PULSE 56; RESP 18
[2018-10-25] MEDS: ATORVASTATIN 20 MG TAB PO SCH (20:42)
[2018-10-25] MEDS: HYDROCODONE/APAP (5/325) TAB PO PRN (20:54)
[2018-10-25] MEDS: TRIAMCINOLONE ACET 0.025% 15 GM CR TOP SCH (21:20)
[2018-10-26] MEDS: PIPER-TAZO 3.375 GM IV (PMX) 100 ML IVPB SCH ×4 (00:10→21:43)
[2018-10-26 02:40] VITALS: BP 107/67; PULSE 52; RESP 18
[2018-10-26] MEDS: DEXTROSE 5%-0.45% NACL 1,000 ML IV SCH ×2 (06:15→21:40)
--- NOTE | 2018-10-26 07:04 | PN ---
DATE: 10/25/2018 SUBJECTIVE: The patient complains of mild itching in the left arm, pain well controlled. OBJECTIVE: VITAL SIGNS: Temperature 98.4, blood pressure 129/63, O2 sats 95% on room air. CHEST: Clinically clear. EXTREMITIES: Trace edema. Aranza is negative. LABORATORY DATA: PT/INR is 1.10 after 10 mg of Coumadin yesterday. Dr. Fernández' recommendation is noted. Bactrim has been added. IMPRESSION: 1. Perirectal abscess, status post incision and drainage, evidence of enterococcus, Escherichia coli , extended-spectrum beta-lactamases, and Vero. 2. Hypercoagulable state, on Coumadin. 3. Chronic obstructive pulmonary disease. 4. Obstructive sleep apnea. 5. Hyperlipidemia. PLAN: We will give 50 mg Coumadin today, closely observing for escalation of INR levels on Bactrim, continue Sitz bath, increase activity and observe. Dictated By: JERMAN JAMES MD, SR/MAX Conf#: [id number] DID#: [id number]
--- NOTE | 2018-10-26 07:06 | PN ---
DATE: 10/23/2018 SUBJECTIVE: The patient had an I and D of the abscess yesterday with excellent pain control now. De nies any chest pain or shortness of breath. PHYSICAL EXAMINATION: GENERAL: The patient is awake, alert. VITAL SIGNS: Temperature 98.0, blood pressure 141/68, pulse ox is 96% on room air. LUNGS: Clinically clear. ABDOMEN: Soft. EXTREMITIES: No edema. MICROBIOLOGY: Wound culture: Enterococcus, E. coli ESBL and Vero. IMPRESSION: 1. Perirectal abscess, status post incision and drainage. 2. Chronic obstructive pulmonary disease. 3. Obstructive sleep apnea. 4. Hyperlipidemia. 5. Chronic venous stasis, dermatitis of lower extremity and prior history of deep venous thrombosis. No evidence of acute deep venous thrombosis at this time. 6. Thrombophilia with positive factor V Leiden. PLAN: We will start the patient on Coumadin today. I discussed with Dr. Fernández regarding antibiotics and follow his recommendations. Dictated By: JERMAN JAMES MD SR/NTS Conf#: [id number] DID#: [id number] CC: RAVINDRA MANZANARES MD;*EndCC*
[2018-10-26 07:54] VITALS: BP 127/80; PULSE 85; RESP 17
--- NOTE | 2018-10-26 08:11 | CONS ---
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 to abscess cx taken and pending if no MRSA found over weekend to stop vanco then 10/24 - nor MRSA e.coli +esbl in original kadeem-rectal culture which was prior to abscess draining or surgical I&D but it is sensitive to zosyn c.alb is present from abscess drainage and original wound cx micro has not yet plated the surgical wound cx and will need to locate it d/c vanco, continue zosyn and start diflucan 10/25 - abscess cx has GNR, ID is pending drainage cx prior to surgery has grown acinetobacter +MDRO, continue with zosyn but had bactrim for the acinetobacter WBC has returned to WNL, to repeat tomorrow bactrim can increase coumadin levels and will need to monitor INR while on the combination 10/26 - surgical abscess has e.coli+ESBL and enterococcus but no acinetobacter pt has minimal drainage continue with zosyn/bactrim for a two week course (thru 11/02/18) continue to monitor INR while pt on combo of coumadin and bactrim 2) hyperlipidemia 3) hypercoagulable state Consultation Date/Type/Reason Admit Date/Time Oct 20, 2018 at 14:35 Initial Consult Date 10/21/18 Type of Consult ID Date/Time of Note DATE: 10/26/18 TIME: 08:06 24 HR Interval Summary Free Text/Dictation pt sitting up in bed and has no pain no N, V, D he had a BM yesterday, no pain with it no dysphagia Exam/Review of Systems Exam Vitals Vital Signs Date Temp Pulse Resp B/P (MAP) Pulse Ox O2 O2 Flow FiO2 Time Delivery Rate 10/26/18 97.6 85 17 127/80 96 Room Air 07:54 (96) 10/24/18 21 05:16 10/22/18 2.0 23:30 Intake and Output 4/14/19 4/14/19 4/15/19 1515:00 23:00 07:00 IntakeIntake Total 775 ml 910 ml 1675 ml OutputOutput Total 250 ml 875 ml BalanceBalance 525 ml 910 ml 800 ml Constitutional: alert, oriented Eyes: nl sclera Respiratory: clear to auscultation Cardiovascular: regular rate and rhythm Gastrointestinal: soft, non-tender Results Result Diagram: 10/26/18 0558 10/26/18 0558 Results 24hrs Laboratory Tests Test 10/26/18 05:58 White Blood Count 10.8 Red Blood Count 4.49 L Hemoglobin 13.4 L Hematocrit 40.2 L Mean Corpuscular Volume 89.5 Mean Corpuscular Hemoglobin 29.8 Mean Corpuscular Hemoglobin Concent 33.3 Red Cell Distribution Width 13.0 Platelet Count 278 Mean Platelet Volume 10.4 Immature Granulocytes % 8.600 H Neutrophils % Segmented Neutrophils % (Manual) 41 Band Neutrophils % (Manual) 9 H Lymphocytes % Lymphocytes % (Manual) 38 Reactive Lymphocytes % (Manual) 4 H Monocytes % Monocytes % (Manual) 5 Eosinophils % Eosinophils % (Manual) 2 Basophils % Myelocytes % (Manual) 1 H Nucleated Red Blood Cells % 0.0 Immature Granulocytes # 0.930 H Neutrophils # Neutrophils # (Manual) 4.5 Band Neutrophils # 0.9 H Lymphocytes (Manual) 4.1 H Lymphocytes # Reactive Lymphocytes # 0.4 H Monocytes # Monocytes # (Manual) 0.5 Eosinophils # Basophils # Myelocytes # 0.1 H Nucleated Red Blood Cells # Platelet Estimate NORMAL Polychromasia 1+ Macrocytosis 1+ Prothrombin Time 16.8 H Prothrombin Time Ratio 1.3 INR International Normalized Ratio 1.35 Sodium Level 140 Potassium Level 3.9 Chloride Level 106 Carbon Dioxide Level 27 Anion Gap 7 Blood Urea Nitrogen 16 Creatinine 1.06 Est Glomerular Filtrat Rate mL/min > 60 Glucose Level 123 Calcium Level 9.0 Medications Medication Current Medications Piperacillin Sod/ Tazobactam Sod 100 ml @ 200 mls/hr Q6 IVPB Last administered on 10/26/18at 06:15; Admin Dose 200 MLS/HR; Start 10/20/18 at 20:00 Acetaminophen (Tylenol Tab) 650 mg Q4H PRN PO .MILD TO MOD PAIN OR T>101 Last administered on 4/10/19at 14:22; Admin Dose 650 MG; Start 10/20/18 at 18:30 Atorvastatin Calcium (Lipitor) 20 mg DAILY@21 PO Last administered on 10/25/18 20:42; Admin Dose 20 MG; Start 10/20/18 at 21:00 Ondansetron HCl (Zofran Inj) 4 mg Q4H PRN IV NAUSEA AND/OR VOMITING Last administered on 10/22/18 02:58; Admin Dose 4 MG; Start 10/20/18 at 19:00 Dextrose/Sodium Chloride 1,000 ml @ 75 mls/hr [id number] IV Last administered on 10/26/18 06:15; Admin Dose 75 MLS/HR; Start 10/22/18 at 11:30 Acetaminophen/ Hydrocodone Bitart ([place] (5/325)) 1 tab Q4H PRN PO MODERATE PAIN LEVEL 4-6 Last administered on 10/25/18 20:54; Admin Dose 1 TAB; Start 10/22/18 at 20:00 Docusate Sodium (Colace) 100 mg BID PO Last administered on 10/25/18 20:42; Admin Dose 100 MG; Start 10/23/18 at 09:00 Fluconazole (Diflucan) 200 mg DAILY PO Last administered on 10/25/18 08:47; Admin Dose 200 MG; Start 10/24/18 at 09:00 Trimethoprim/ Sulfamethoxazole (Bactrim (Ds)) 1 tab BID PO Last administered on 10/25/18 20:42; Admin Dose 1 TAB; Start 10/25/18 at 09:30 Triamcinolone Acetonide (Kenalog 0.025% Cr) 1 applic BID TOP Last administered on 10/25/18 21:20; Admin Dose 1 APPLIC; Start 10/25/18 at 21:00 JOSEPH KENNEDY MD Oct 26, 2018 08:11
[2018-10-26] MEDS ORDERED: POTASSIUM CHLORIDE (SR) 20 MEQ TAB PO STA (09:10)
--- NOTE | 2018-10-26 09:55 | PN ---
DATE: 10/26/2018 SUBJECTIVE: The patient overall feels better. Minimal pain. He denies any chest pain or shortness of breath, felt dizzy, which was for a few minutes and resolved. OBJECTIVE: VITAL SIGNS: Temperature 97.6, blood pressure 127/80, O2 sat 96%. CHEST: Clinically clear. HEART: S1, S2 heard, no murmur or gallops. EXTREMITIES: No edema. LABORATORY DATA: WBC count 10.8, hematocrit 40.2, potassium 3.9. INR is 1.35. Dr. Fernández' ID consultation recommendations greatly appreciated. The patient is presently on Zosyn and Bactrim. IMPRESSION: 1. Perirectal abscess, status post incision and drainage. 2. Chronic obstructive pulmonary disease. 3. Thrombophilia with positive factor V Leiden, on Coumadin. 4. Obstructive sleep apnea. 5. Hyperlipidemia. 6. Chronic venous stasis dermatitis of lower extremity prior history of deep venous thrombosis. PLAN: We will give Coumadin 10 mg p.o. today. Recheck labs in a.m. Dictated By: JERMAN JAMES MD SR/NTS Conf#: [id number] DID#: [id number] CC: JERMAN JAMES MD;*EndCC*
[2018-10-26] MEDS: DOCUSATE SODIUM 100 MG CAP PO SCH ×2 (10:02→21:40)
[2018-10-26] MEDS: FLUCONAZOLE 200 MG TAB PO SCH (10:03)
[2018-10-26] MEDS: TRIMETHOPRIM/SULFAMETHOX (DS) TAB PO SCH ×2 (10:03→21:40)
[2018-10-26] MEDS: TRIAMCINOLONE ACET 0.025% 15 GM CR TOP SCH ×2 (10:04→21:44)
[2018-10-26 14:38] VITALS: BP 115/59; PULSE 55; RESP 18
[2018-10-26] MEDS ORDERED: WARFARIN 10 MG TAB PO ONE (17:00)
[2018-10-26 20:00] VITALS: BP 109/62; PULSE 56; RESP 18
[2018-10-26] MEDS: ATORVASTATIN 20 MG TAB PO SCH (21:40)
[2018-10-27 02:00] VITALS: BP 108/61; PULSE 44; RESP 18
[2018-10-27] MEDS: PIPER-TAZO 3.375 GM IV (PMX) 100 ML IVPB SCH ×4 (06:10→19:07)
[2018-10-27 07:50] VITALS: BP 111/60; PULSE 54; RESP 18
[2018-10-27] MEDS: FLUCONAZOLE 200 MG TAB PO SCH (10:41)
[2018-10-27] MEDS: DOCUSATE SODIUM 100 MG CAP PO SCH ×2 (10:42→21:32)
[2018-10-27] MEDS: TRIAMCINOLONE ACET 0.025% 15 GM CR TOP SCH ×2 (10:42→21:33)
[2018-10-27] MEDS: TRIMETHOPRIM/SULFAMETHOX (DS) TAB PO SCH ×2 (10:42→21:32)
[2018-10-27 14:00] VITALS: BP 117/56; PULSE 53; RESP 18
[2018-10-27] MEDS: HYDROCODONE/APAP (5/325) TAB PO PRN (14:22)
--- NOTE | 2018-10-27 15:00 | PN ---
DATE: 10/27/2018 SUBJECTIVE: The patient has no dizziness today. Has not had a BM today. OBJECTIVE: VITAL SIGNS: Temperature 98.1, blood pressure 111/60, heart rate 54 per minute, O2 sats low as [address] night. CHEST: Clinically clear. HEART: S1, S2 heard. No definite gallops. ABDOMEN: Soft, nontender. No hepatosplenomegaly. EXTREMITIES: Trace edema. Homans negative. LABORATORY DATA: INR is 1.69. Potassium 4.2. WBC count 12.6, hematocrit 41.8, platelet count 300,0 00. IMPRESSION: 1. Perirectal abscess, status post incision and drainage. 2. Chronic obstructive pulmonary disease. 3. Thrombophilia with positive factor V Leiden, on Coumadin. PT will be closely monitored in view o f the fact the patient is on antibiotics with Zosyn and Bactrim. 4. Obstructive sleep apnea. 5. Hyperlipidemia. 6. Chronic venous stasis dermatitis of the lower extremities, status post prior history of deep veno us thrombosis. 7. Bradycardia. 8. Rule out hypothyroidism. PLAN: We will give Coumadin 10 mg today. Check labs in a.m. along with a T4, TSH. We will disconti nue IV. Increase activity and observe. Dictated By: JERMAN JAMES MD SR/NTS Conf#: [id number] DID#: [id number] CC: RAVINDRA MANZANARES MD;*EndCC*
[2018-10-27] MEDS ORDERED: WARFARIN 10 MG TAB PO ONE (17:00)
[2018-10-27 20:00] VITALS: BP 107/56; PULSE 56; RESP 18
[2018-10-27] MEDS: ATORVASTATIN 20 MG TAB PO SCH (21:32)
[2018-10-28] MEDS: PIPER-TAZO 3.375 GM IV (PMX) 100 ML IVPB SCH ×5 (01:35→23:23)
[2018-10-28 02:00] VITALS: BP 103/57; PULSE 52; RESP 17
--- NOTE | 2018-10-28 07:18 | CONS ---
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 to abscess cx taken and pending if no MRSA found over weekend to stop vanco then 10/24 - nor MRSA e.coli +esbl in original kadeem-rectal culture which was prior to abscess draining or surgical I&D but it is sensitive to zosyn c.alb is present from abscess drainage and original wound cx micro has not yet plated the surgical wound cx and will need to locate it d/c vanco, continue zosyn and start diflucan 10/25 - abscess cx has GNR, ID is pending drainage cx prior to surgery has grown acinetobacter +MDRO, continue with zosyn but had bactrim for the acinetobacter WBC has returned to WNL, to repeat tomorrow bactrim can increase coumadin levels and will need to monitor INR while on the combination 10/26 - surgical abscess has e.coli+ESBL and enterococcus but no acinetobacter pt has minimal drainage continue with zosyn/bactrim for a two week course (thru 11/02/18) continue to monitor INR while pt on combo of coumadin and bactrim 10/28 - pt stable on zosyn/bactrim, INR is ok if plan is to send pt home on IV zosyn then I need to write for home health ord ers pt has 6 days left of his antibiotics 2) hyperlipidemia 3) hypercoagulable state Consultation Date/Type/Reason Admit Date/Time Oct 20, 2018 at 14:35 Initial Consult Date 10/21/18 Type of Consult ID Date/Time of Note DATE: 10/28/18 TIME: 07:16 24 HR Interval Summary Free Text/Dictation pt denies rectal pain has slight drainage from site no N, V pt had normal BM yesterday appetite is good Exam/Review of Systems Exam Vitals Vital Signs Date Temp Pulse Resp B/P (MAP) Pulse Ox O2 O2 Flow FiO2 Time Delivery Rate 10/28/18 98.0 52 17 103/57 97 02:00 (72) 10/27/18 Room Air 14:00 Intake and Output 10/27/18 10/27/18 10/28/18 1515:00 23:00 07:00 IntakeIntake Total 475 ml 1100 ml BalanceBalance 475 ml 1100 ml Results Result Diagram: 10/27/18 0533 10/27/18 0533 Medications Medication Current Medications Piperacillin Sod/ Tazobactam Sod 100 ml @ 200 mls/hr Q6 IVPB Last administered on 10/28/18 06:16; Admin Dose 200 MLS/HR; Start 10/20/18 at 20:00 Acetaminophen (Tylenol Tab) 650 mg Q4H PRN PO .MILD TO MOD PAIN OR T>101 Last administered on 10/21/18 14:22; Admin Dose 650 MG; Start 10/20/18 at 18:30 Atorvastatin Calcium (Lipitor) 20 mg DAILY@21 PO Last administered on 10/27/18 21:32; Admin Dose 20 MG; Start 10/20/18 at 21:00 Ondansetron HCl (Zofran Inj) 4 mg Q4H PRN IV NAUSEA AND/OR VOMITING Last administered on 10/22/18 02:58; Admin Dose 4 MG; Start 10/20/18 at 19:00 Acetaminophen/ Hydrocodone Bitart ([place] (5/325)) 1 tab Q4H PRN PO MODERATE PAIN LEVEL 4-6 Last administered on 10/27/18 14:22; Admin Dose 1 TAB; Start 10/22/18 at 20:00 Docusate Sodium (Colace) 100 mg BID PO Last administered on 10/27/18 21:32; Admin Dose 100 MG; Start 10/23/18 at 09:00 Fluconazole (Diflucan) 200 mg DAILY PO Last administered on 10/27/18 10:41; Admin Dose 200 MG; Start 10/24/18 at 09:00 Trimethoprim/ Sulfamethoxazole (Bactrim (Ds)) 1 tab BID PO Last administered on 10/27/18 21:32; Admin Dose 1 TAB; Start 10/25/18 at 09:30 Triamcinolone Acetonide (Kenalog 0.025% Cr) 1 applic BID TOP Last administered on 4/16/19at 21:33; Admin Dose 1 APPLIC; Start 10/25/18 at 21:00 JOSEPH KENNEDY MD Oct 28, 2018 07:18
[2018-10-28 07:48] VITALS: BP 105/60; PULSE 50; RESP 17
[2018-10-28] MEDS: FLUCONAZOLE 200 MG TAB PO SCH (09:30)
[2018-10-28] MEDS: TRIMETHOPRIM/SULFAMETHOX (DS) TAB PO SCH ×2 (09:30→20:20)
[2018-10-28] MEDS: DOCUSATE SODIUM 100 MG CAP PO SCH ×2 (09:30→20:20)
[2018-10-28] MEDS: TRIAMCINOLONE ACET 0.025% 15 GM CR TOP SCH ×2 (09:31→20:20)
--- NOTE | 2018-10-28 10:15 | PN ---
DATE: 10/28/2018 SUBJECTIVE: The patient has no dizziness. He is ambulating. OBJECTIVE: VITAL SIGNS: Temperature 97.9, blood pressure 105/60, O2 saturation 97% on room air. CHEST: Clinically clear. HEART: S1, S2 with no definite gallops. EXTREMITIES: No edema. LABORATORY DATA: INR is 2.05, potassium 4.4. T4 is 10.4. TSH is 2.04. White blood cell count is 1 2.0, hematocrit 46.7, immature granulocytes percentage is 10.1. The patient is on Zosyn and Bactrim. White count continues to be up. IMPRESSION: 1. Status post incision and drainage of her perirectal abscesses. 2. Chronic obstructive pulmonary disease. 3. Thrombophilia with positive factor V Leiden, on Coumadin. Prothrombin time is being monitored da iesha. In view of the interaction with antibiotics. 4. Persistent leukocytosis. 5. Obstructive sleep apnea. 6. Hyperlipidemia. 7. Chronic stasis dermatitis, venous, of the lower extremities. PLAN: We will continue IV antibiotics. We will give Coumadin 7.5 mg p.o. today and recheck PT, INR tomorrow. We will discuss with Dr. Fernández. Dictated By: JERMAN JAMES MD SR/NTS Conf#: [id number] DID#: [id number] CC: RAVINDRA MANZANARES MD; JERMAN JAMES MD;*EndCC*
[2018-10-28 14:06] VITALS: BP 104/58; PULSE 57; RESP 18
[2018-10-28] MEDS ORDERED: WARFARIN 7.5 MG TAB PO ONE (17:00)
[2018-10-28 19:56] VITALS: BP 101/57; PULSE 56; RESP 18
[2018-10-28] MEDS: ATORVASTATIN 20 MG TAB PO SCH (20:20)
[2018-10-29 02:05] VITALS: BP 105/61; PULSE 58; RESP 18
[2018-10-29] MEDS: PIPER-TAZO 3.375 GM IV (PMX) 100 ML IVPB SCH ×4 (05:51→23:45)
[2018-10-29 08:06] VITALS: BP 101/56; PULSE 52; RESP 18
[2018-10-29] MEDS: FLUCONAZOLE 200 MG TAB PO SCH (09:05)
[2018-10-29] MEDS: TRIMETHOPRIM/SULFAMETHOX (DS) TAB PO SCH ×2 (09:05→20:11)
[2018-10-29] MEDS: DOCUSATE SODIUM 100 MG CAP PO SCH ×2 (09:05→20:11)
[2018-10-29] MEDS: TRIAMCINOLONE ACET 0.025% 15 GM CR TOP SCH ×2 (09:06→20:12)
--- NOTE | 2018-10-29 12:42 | PN ---
DATE: 10/29/2018 SUBJECTIVE: The patient has occasional pain, still has some discharge that drained from the abscess. VITAL SIGNS: Temperature 97.7, blood pressure 101/56, O2 sats 96%. CHEST: Clinically clear. HEART: S1, S2 with no gallops. EXTREMITIES: No edema. LABORATORY DATA: WBC count 9.6, potassium 4.4, BUN 23, creatinine 1.27. PT/INR 2.53. The patient r eceived 7.5 mg of Coumadin yesterday. IMPRESSION: 1. Perirectal abscess, status post incision and drainage. 2. Chronic obstructive lung disease. 3. Thrombophilia with positive factor V Leiden, on Coumadin. Prothrombin time being monitored daily in view of interaction with antibiotics. 4. Obstructive sleep apnea. 5. Hyperlipidemia. PLAN: Will give Coumadin 4 mg p.o. daily. Continue Zosyn. We will discuss with Dr. Fernández, continue IV antibiotics, namely Zosyn and p.o. Bactrim. Dictated By: JERMAN JAMES MD, SR/MAX Conf#: [id number] DID#: [id number]
[2018-10-29] MEDS: HYDROCODONE/APAP (5/325) TAB PO PRN (13:08)
[2018-10-29 14:37] VITALS: BP 110/57; PULSE 55; RESP 18
[2018-10-29] MEDS ORDERED: WARFARIN 2 MG TAB PO ONE (17:00)
[2018-10-29] MEDS: ATORVASTATIN 20 MG TAB PO SCH (20:11)
[2018-10-29 20:51] VITALS: BP 115/71; PULSE 54; RESP 18
[2018-10-30 02:40] VITALS: BP 102/62; PULSE 56; RESP 16
[2018-10-30] MEDS: PIPER-TAZO 3.375 GM IV (PMX) 100 ML IVPB SCH ×4 (05:06→23:22)
--- NOTE | 2018-10-30 07:24 | CONS ---
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 to abscess cx taken and pending if no MRSA found over weekend to stop vanco then 10/24 - nor MRSA e.coli +esbl in original kadeem-rectal culture which was prior to abscess draining or surgical I&D but it is sensitive to zosyn c.alb is present from abscess drainage and original wound cx micro has not yet plated the surgical wound cx and will need to locate it d/c vanco, continue zosyn and start diflucan 10/25 - abscess cx has GNR, ID is pending drainage cx prior to surgery has grown acinetobacter +MDRO, continue with zosyn but had bactrim for the acinetobacter WBC has returned to WNL, to repeat tomorrow bactrim can increase coumadin levels and will need to monitor INR while on the combination 10/26 - surgical abscess has e.coli+ESBL and enterococcus but no acinetobacter pt has minimal drainage continue with zosyn/bactrim for a two week course (thru 11/02/18) continue to monitor INR while pt on combo of coumadin and bactrim 10/28 - pt stable on zosyn/bactrim, INR is ok if plan is to send pt home on IV zosyn then I need to write for home health orders pt has 6 days left of his antibiotics 10/30 - stable pt still has drainage, pt will likely need follow-up with Dr. Zazueta as outpt continue with zosyn/bactrim thru 11/02 will re-cx the site 2) hyperlipidemia 3) hypercoagulable state Consultation Date/Type/Reason Admit Date/Time Oct 20, 2018 at 14:35 Initial Consult Date 10/21/18 Type of Consult ID Date/Time of Note DATE: 10/30/18 TIME: 07:21 24 HR Interval Summary Free Text/Dictation pt doing well no pain but still has drainage from perineum no N, V, D Exam/Review of Systems Exam Vitals Vital Signs Date Temp Pulse Resp B/P (MAP) Pulse Ox O2 O2 Flow FiO2 Time Delivery Rate 10/30/18 97.6 56 16 102/62 96 02:40 (75) 10/28/18 Room Air 14:06 Intake and Output 10/29/18 10/29/18 10/30/18 1515:00 23:00 07:00 IntakeIntake Total 580 ml 340 ml 520 ml BalanceBalance 580 ml 340 ml 520 ml Constitutional: alert, oriented Eyes: nl sclera ENMT: mucosa pink and moist Respiratory: clear to auscultation Cardiovascular: regular rate and rhythm Gastrointestinal: soft, non-tender, other (perineal area shows packing, no surrounding redness but bandage as some drainage on it with blood) Results Result Diagram: 10/30/1834 10/30/18 0534 Results 24hrs Laboratory Tests Test 10/30/18 05:34 White Blood Count 7.4 # Red Blood Count 4.80 Hemoglobin 14.3 Hematocrit 43.1 Mean Corpuscular Volume 89.8 Mean Corpuscular Hemoglobin 29.8 Mean Corpuscular Hemoglobin Concent 33.2 Red Cell Distribution Width 13.2 Platelet Count 288 Mean Platelet Volume 10.3 Immature Granulocytes % 4.600 H Neutrophils % 49.8 Lymphocytes % 33.5 Monocytes % 7.6 Eosinophils % 3.0 Basophils % 1.5 Nucleated Red Blood Cells % 0.0 Immature Granulocytes # 0.340 H Neutrophils # 3.7 Lymphocytes # 2.5 Monocytes # 0.6 Eosinophils # 0.2 Basophils # 0.1 Nucleated Red Blood Cells # 0.0 Prothrombin Time 29.9 H Prothrombin Time Ratio 2.3 INR International Normalized Ratio 2.84 Sodium Level 138 Potassium Level 4.3 Chloride Level 107 Carbon Dioxide Level 23 Anion Gap 8 Blood Urea Nitrogen 26 H Creatinine 1.19 Est Glomerular Filtrat Rate mL/min > 60 Glucose Level 106 Calcium Level 9.4 Medications Medication Current Medications Piperacillin Sod/ Tazobactam Sod 100 ml @ 200 mls/hr Q6 IVPB Last administered on 10/30/18at 05:06; Admin Dose 200 MLS/HR; Start 10/20/18 at 20:00 Acetaminophen (Tylenol Tab) 650 mg Q4H PRN PO .MILD TO MOD PAIN OR T>101 Last administered on 10/21/18 14:22; Admin Dose 650 MG; Start 10/20/18 at 18:30 Atorvastatin Calcium (Lipitor) 20 mg DAILY@21 PO Last administered on 10/29/18 20:11; Admin Dose 20 MG; Start 10/20/18 at 21:00 Ondansetron HCl (Zofran Inj) 4 mg Q4H PRN IV NAUSEA AND/OR VOMITING Last administered on 10/22/18 02:58; Admin Dose 4 MG; Start 10/20/18 at 19:00 Acetaminophen/ Hydrocodone Bitart ([place] (5/325)) 1 tab Q4H PRN PO MODERATE PAIN LEVEL 4-6 Last administered on 10/29/18 13:08; Admin Dose 1 TAB; Start 10/22/18 at 20:00 Docusate Sodium (Colace) 100 mg BID PO Last administered on 10/29/18 20:11; Admin Dose 100 MG; Start 10/23/18 at 09:00 Fluconazole (Diflucan) 200 mg DAILY PO Last administered on 10/29/18 09:05; Admin Dose 200 MG; Start 10/24/18 at 09:00 Trimethoprim/ Sulfamethoxazole (Bactrim (Ds)) 1 tab BID PO Last administered on 10/29/18 20:11; Admin Dose 1 TAB; Start 10/25/18 at 09:30 Triamcinolone Acetonide (Kenalog 0.025% Cr) 1 applic BID TOP Last administered on 10/29/18 20:12; Admin Dose 1 APPLIC; Start 10/25/18 at 21:00 JOSEPH KENNEDY MD Oct 30, 2018 07:24
[2018-10-30] MEDS: DOCUSATE SODIUM 100 MG CAP PO SCH ×2 (08:29→20:15)
[2018-10-30] MEDS: TRIMETHOPRIM/SULFAMETHOX (DS) TAB PO SCH ×2 (08:30→20:15)
[2018-10-30] MEDS: FLUCONAZOLE 200 MG TAB PO SCH (08:30)
[2018-10-30] MEDS: TRIAMCINOLONE ACET 0.025% 15 GM CR TOP SCH ×2 (08:30→20:16)
[2018-10-30 08:38] VITALS: BP 109/61; PULSE 55; RESP 17
[2018-10-30 14:00] VITALS: BP 110/65; PULSE 51; RESP 17
[2018-10-30] MEDS ORDERED: WARFARIN 2 MG TAB PO ONE (17:00)
[2018-10-30 19:40] VITALS: BP 113/59; PULSE 52; RESP 17
[2018-10-30] MEDS: ATORVASTATIN 20 MG TAB PO SCH (20:15)
[2018-10-31 02:03] VITALS: BP 104/51; PULSE 50; RESP 17
[2018-10-31] MEDS: PIPER-TAZO 3.375 GM IV (PMX) 100 ML IVPB SCH ×3 (05:48→18:50)
[2018-10-31 07:30] VITALS: BP 106/58; PULSE 56; RESP 18
[2018-10-31] MEDS: DOCUSATE SODIUM 100 MG CAP PO SCH ×2 (09:32→21:02)
[2018-10-31] MEDS: FLUCONAZOLE 200 MG TAB PO SCH (09:32)
[2018-10-31] MEDS: TRIMETHOPRIM/SULFAMETHOX (DS) TAB PO SCH ×2 (09:32→21:02)
[2018-10-31] MEDS: TRIAMCINOLONE ACET 0.025% 15 GM CR TOP SCH ×2 (09:33→21:02)
[2018-10-31 14:25] VITALS: BP 117/58; PULSE 61; RESP 16
[2018-10-31] MEDS ORDERED: WARFARIN 3 MG TAB PO ONE (17:00)
--- NOTE | 2018-10-31 17:40 | PN ---
DATE: 10/31/2018 SUBJECTIVE: The patient is awake, alert and has minimal pain. He denies any fever or chills. PHYSICAL EXAMINATION: VITAL SIGNS: Temperature 98.1, blood pressure 117/58 and O2 saturation 96% on room air. CHEST: Clinically clear. ABDOMEN: Soft, nontender, no hepatosplenomegaly. EXTREMITIES: No edema. LABORATORY DATA: INR is 2.6. Lung culture, pulmonary diphtheroids. IMPRESSION: 1. Perirectal abscess, status post incision and drainage. 2. Chronic obstructive pulmonary disease. 3. Thrombophilia, positive factor V Leiden. 4. Obstructive sleep apnea. 5. Hyperlipidemia. PLAN: We will give Coumadin 2.5 mg p.o. today. Recheck PT, INR tomorrow. Dictated By: JERMAN JAMES MD, SR/NTS Conf#: [id number] DID#: [id number]
[2018-10-31 20:00] VITALS: BP 106/59; PULSE 53; RESP 18
[2018-10-31] MEDS: ATORVASTATIN 20 MG TAB PO SCH (21:02)
[2018-11-01] MEDS: PIPER-TAZO 3.375 GM IV (PMX) 100 ML IVPB SCH ×4 (00:16→18:17)
[2018-11-01 02:00] VITALS: BP 100/58; PULSE 53; RESP 18
[2018-11-01 08:43] VITALS: BP 114/61; PULSE 55; RESP 18
[2018-11-01] MEDS: TRIMETHOPRIM/SULFAMETHOX (DS) TAB PO SCH ×2 (09:03→21:30)
[2018-11-01] MEDS: DOCUSATE SODIUM 100 MG CAP PO SCH ×2 (09:04→21:30)
[2018-11-01] MEDS: FLUCONAZOLE 200 MG TAB PO SCH (09:04)
[2018-11-01] MEDS: TRIAMCINOLONE ACET 0.025% 15 GM CR TOP SCH ×2 (09:04→21:30)
[2018-11-01 15:00] VITALS: BP 109/4; PULSE 54; RESP 18
--- NOTE | 2018-11-01 16:58 | PN ---
DATE: 11/01/2018 SUBJECTIVE: The patient has minimal pain on discharge. No fever or chills. PHYSICAL EXAMINATION: VITAL SIGNS: Temperature 97.9, blood pressure 114/61, O2 sats 98% on room air. LUNGS: Clinically clear. HEART: S1, S2 with no definite gallops. EXTREMITIES: No edema. LABORATORY DATA: PT/INR today is 2.58. The patient received Coumadin 3 mg yesterday, on Zosyn and B actrim. Repeat wound culture is growing gram-negative rods, Enterococcus species. IMPRESSION: 1. Perirectal abscess, status post incision and drainage. 2. Chronic obstructive pulmonary disease. 3. Thrombophilia, positive factor V Leiden. 4. Obstructive sleep apnea. 5. Hyperlipidemia. PLAN: We will give Coumadin 3 mg today and recheck PT/INR tomorrow. We will discuss with Dr. Jolene pickens nd consider discharge as soon as course of antibiotics is completed. Dictated By: JERMAN JAMES MD SR/NTS Conf#: [id number] DID#: [id number]
[2018-11-01] MEDS ORDERED: WARFARIN 3 MG TAB PO ONE (17:00)
[2018-11-01] MEDS ORDERED: WARFARIN 1 MG TAB PO ONE (18:00)
[2018-11-01 20:00] VITALS: BP 115/54; PULSE 59; RESP 18
[2018-11-01] MEDS: ATORVASTATIN 20 MG TAB PO SCH (21:30)
[2018-11-02] MEDS: PIPER-TAZO 3.375 GM IV (PMX) 100 ML IVPB SCH ×5 (00:46→23:07)
[2018-11-02 02:00] VITALS: BP 118/60; PULSE 53; RESP 18
--- NOTE | 2018-11-02 07:17 | PN ---
DATE: 10/30/2018 SUBJECTIVE: The patient overall feels well. Still has minimal discharge from the abscess which is m ucopurulent. PHYSICAL EXAMINATION: VITAL SIGNS: Temperature 98.3, blood pressure 109/61, O2 sat is 97% on room air. CHEST: Clinically clear. HEART: S1, S2 heard. No definite gallops. EXTREMITIES: No edema. LABORATORY DATA: WBC count 7.4, hematocrit 43.1. PT/INR is 2.84. BUN 26, creatinine 1.19. IMPRESSION: 1. Perirectal abscess, status post incision and drainage on Zosyn and Bactrim. 2. Thrombophilia with positive factor V Leiden, on Coumadin. INR is therapeutic today. 3. Chronic obstructive pulmonary disease. 4. Obstructive sleep apnea. 5. Hyperlipidemia. PLAN: We will give Coumadin 2 mg p.o. today. Recheck PT, INR tomorrow. We will also discuss with Madelaine Zazueta. Follow recommendations per Dr. Fernández. Dictated By: JERMAN JAMES MD SR/NTS Conf#: [id number] DID#: [id number] CC: RAVINDRA ZAZUETA MD;*EndCC*
[2018-11-02 08:33] VITALS: BP 125/67; PULSE 51; RESP 18
[2018-11-02] MEDS: FLUCONAZOLE 200 MG TAB PO SCH (09:12)
[2018-11-02] MEDS: DOCUSATE SODIUM 100 MG CAP PO SCH ×2 (09:12→21:12)
[2018-11-02] MEDS: TRIMETHOPRIM/SULFAMETHOX (DS) TAB PO SCH ×2 (09:12→21:12)
[2018-11-02] MEDS: TRIAMCINOLONE ACET 0.025% 15 GM CR TOP SCH ×2 (09:12→21:13)
--- NOTE | 2018-11-02 14:03 | PN ---
DATE: 11/02/2018 SUBJECTIVE: The patient overall feels well. Denies any chest pain, shortness of breath. PHYSICAL EXAMINATION VITAL SIGNS: Temperature 97.7, blood pressure 125/67, O2 saturation 98% on room air. CHEST: Clinically clear. EXTREMITIES: No edema. MICROBIOLOGY: Repeat cultures are growing Pseudomonas, Escherichia coli ESBL and Enterococcus specie s. LABORATORY DATA: The patient's PT/INR is 2.36. The patient received 3 mg of Coumadin yesterday. IMPRESSION: 1. Perirectal abscess, status post incision and drainage on Zosyn and Bactrim. 2. Thrombophilia with positive factor V Leiden, on Coumadin, therapeutic INR. 3. Chronic obstructive pulmonary disease. 4. Obstructive sleep apnea. 5. Hyperlipidemia. PLAN: We will give Coumadin 4 mg p.o. daily and repeat cultures are growing E. coli ESBL and Pseudom onas. Would need to confirm that they are not colonized. We will discuss with Dr. Fernández and follow h is recommendations. If patient does not need any further IV antibiotics, we will consider discharge tomorrow if okay with Dr. Fernández. Dictated By: JERMAN JAMES MD SR/NTS Conf#: [id number] DID#: [id number] CC: RAVINDRA MANZANARES MD;*End*
[2018-11-02 15:03] VITALS: BP 111/58; PULSE 51; PULSE 57; RESP 18
[2018-11-02] MEDS ORDERED: WARFARIN 2 MG TAB PO ONE (17:00)
[2018-11-02 20:00] VITALS: BP 116/64; PULSE 56; RESP 19
[2018-11-02] MEDS: ATORVASTATIN 20 MG TAB PO SCH (21:12)
[2018-11-03 02:00] VITALS: BP 101/56; PULSE 51; RESP 18
[2018-11-03] MEDS: PIPER-TAZO 3.375 GM IV (PMX) 100 ML IVPB SCH (06:17)
--- NOTE | 2018-11-03 07:46 | CONS ---
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 to abscess cx taken and pending if no MRSA found over weekend to stop vanco then 10/24 - nor MRSA e.coli +esbl in original kadeem-rectal culture which was prior to abscess draining or surgical I&D but it is sensitive to zosyn c.alb is present from abscess drainage and original wound cx micro has not yet plated the surgical wound cx and will need to locate it d/c vanco, continue zosyn and start diflucan 10/25 - abscess cx has GNR, ID is pending drainage cx prior to surgery has grown acinetobacter +MDRO, continue with zosyn but had bactrim for the acinetobacter WBC has returned to WNL, to repeat tomorrow bactrim can increase coumadin levels and will need to monitor INR while on the combination 10/26 - surgical abscess has e.coli+ESBL and enterococcus but no acinetobacter pt has minimal drainage continue with zosyn/bactrim for a two week course (thru 11/02/18) continue to monitor INR while pt on combo of coumadin and bactrim 10/28 - pt stable on zosyn/bactrim, INR is ok if plan is to send pt home on IV zosyn then I need to write for home health orders pt has 6 days left of his antibiotics 10/30 - stable pt still has drainage, pt will likely need follow-up with Dr. Zazueta as outpt continue with zosyn/bactrim thru 11/02 will re-cx the site 11/03 - no s.aureus found in repeat cx ok to d/c zosyn/bactrim today pt is colonized with stool bacteria and local wound care is what is important at this stage follow-up with wound care as out pt and with Dr. zazueta 2) hyperlipidemia 3) hypercoagulable state Consultation Date/Type/Reason Admit Date/Time Oct 20, 2018 at 14:35 Initial Consult Date 10/21/18 Type of Consult ID Date/Time of Note DATE: 11/03/18 TIME: 07:43 Exam/Review of Systems Exam Vitals Vital Signs Date Temp Pulse Resp B/P (MAP) Pulse Ox O2 O2 Flow FiO2 Time Delivery Rate 11/03/18 97.7 51 18 101/56 97 02:00 (71) 11/02/18 Room Air 15:03 Intake and Output 11/02/18 11/02/18 11/03/18 1515:00 23:00 07:00 IntakeIntake Total 980 ml 920 ml 400 ml BalanceBalance 980 ml 920 ml 400 ml Results Result Diagram: 11/03/18 0533 11/02/18 0523 Results 24hrs Laboratory Tests Test 11/03/18 05:33 White Blood Count 6.5 Red Blood Count 5.05 Hemoglobin 15.0 Hematocrit 44.6 Mean Corpuscular Volume 88.3 Mean Corpuscular Hemoglobin 29.7 Mean Corpuscular Hemoglobin Concent 33.6 Red Cell Distribution Width 13.5 Platelet Count 288 Mean Platelet Volume 10.2 Immature Granulocytes % 0.300 Neutrophils % 48.6 Lymphocytes % 41.3 Monocytes % 7.2 Eosinophils % 1.5 Basophils % 1.1 Nucleated Red Blood Cells % 0.0 Immature Granulocytes # 0.020 Neutrophils # 3.2 Lymphocytes # 2.7 Monocytes # 0.5 Eosinophils # 0.1 Basophils # 0.1 Nucleated Red Blood Cells # 0.0 Prothrombin Time 24.8 H Prothrombin Time Ratio 1.9 INR International Normalized Ratio 2.23 Medications Medication Current Medications Piperacillin Sod/ Tazobactam Sod 100 ml @ 200 mls/hr Q6 IVPB Last administered on 11/03/18at 06:17; Admin Dose 200 MLS/HR; Start 10/20/18 at 20:00 Acetaminophen (Tylenol Tab) 650 mg Q4H PRN PO .MILD TO MOD PAIN OR T>101 Last administered on 10/21/18at 14:22; Admin Dose 650 MG; Start 10/20/18 at 18:30 Atorvastatin Calcium (Lipitor) 20 mg DAILY@21 PO Last administered on 11/02/18at 21:12; Admin Dose 20 MG; Start 10/20/18 at 21:00 Ondansetron HCl (Zofran Inj) 4 mg Q4H PRN IV NAUSEA AND/OR VOMITING Last administered on 10/22/18 02:58; Admin Dose 4 MG; Start 10/20/18 at 19:00 Acetaminophen/ Hydrocodone Bitart ([place] (5/325)) 1 tab Q4H PRN PO MODERATE PAIN LEVEL 4-6 Last administered on 10/29/18 13:08; Admin Dose 1 TAB; Start 10/22/18 at 20:00 Docusate Sodium (Colace) 100 mg BID PO Last administered on 11/02/18 21:12; Admin Dose 100 MG; Start 10/23/18 at 09:00 Fluconazole (Diflucan) 200 mg DAILY PO Last administered on 11/02/18 09:12; Admin Dose 200 MG; Start 10/24/18 at 09:00 Trimethoprim/ Sulfamethoxazole (Bactrim (Ds)) 1 tab BID PO Last administered on 11/02/18 21:12; Admin Dose 1 TAB; Start 10/25/18 at 09:30 Triamcinolone Acetonide (Kenalog 0.025% Cr) 1 applic BID TOP Last administered on 11/02/18 21:13; Admin Dose 1 APPLIC; Start 10/25/18 at 21:00 JOSEPH KENNEDY MD Nov 03, 2018 07:46
[2018-11-03 08:00] VITALS: BP 95/56; PULSE 53; RESP 18
[2018-11-03] MEDS: DOCUSATE SODIUM 100 MG CAP PO SCH (09:05)
[2018-11-03] MEDS: FLUCONAZOLE 200 MG TAB PO SCH (09:05)
[2018-11-03] MEDS: TRIAMCINOLONE ACET 0.025% 15 GM CR TOP SCH (09:08)
--- NOTE | 2018-11-03 14:42 | DS ---
DATE OF ADMISSION: 10/20/2018 DATE OF DISCHARGE: 11/03/2018 FINAL DIAGNOSES: 1. Perirectal abscess, status post incision and drainage, infection with E. coli and Enterococcus. Escherichia coli extended-spectrum beta-lactamase. 2. Thrombophilia with positive factor V Leiden. 3. Chronic obstructive pulmonary disease. 4. Obstructive sleep apnea. 5. Hyperlipidemia. 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 Zazueta in the past, doing fairly well and presenting with fevers with severe rect al pain, seen in the Emergency Room after being seen by Dr. Zazueta. CAT scan showed large perirectal p erianal abscess and patient was admitted. The patient underwent incision and drainage of same and cu ltures grew E. coli and Enterococcus, E. coli ESBL, and the patient had been cleared from a vascular standpoint by Dr. Pang. Doppler venous study of the lower extremity was negative for DVT. The behzad ent had been started on vancomycin and Zosyn. Seen by Dr. Nemesio Fernández who recommended discontinuing van comycin and starting the patient on Bactrim along with Zosyn. Recommended 2-week course of same. The patient's prothrombin time was closely monitored in view of the intractable Bactrim, was given lower doses with achieving appropriate anticoagulation response and patient was discharged home in much im proved condition. The repeat cultures grew the same plus pseudomonas and all felt to be colonizers and the patient will be started on a lower dose of Coumadin and closely monitoring the prothrombin time closely as outpat ient and patient will be followed by Dr. Zazueta as well. DISCHARGE CONDITION: Much improved. Dictated By: JERMAN JAMES MD SR/NTS Conf#: [id number] DID#: [id number]
== END 2018-11-03 12:30 | disposition home or self-care (01) | DRG 394 ==
LOC: E/R 10:58 → PP2 14:35
PROVIDERS: ADMIT Internal Medicine; ATTEND Internal Medicine
PROC: 5A09357 Assistance with Respiratory Ventilation, Less than 24 Consecutive Hours, Continuous Positive Airway Pressure (ICD-10-PCS; 2018-10-21)
PROC: 0D9P80Z Drainage of Rectum with Drainage Device, Via Natural or Artificial Opening Endoscopic (ICD-10-PCS; principal; 2018-10-22 18:30)
DX: K61.39 Other ischiorectal abscess (principal); D68.51 Activated protein C resistance; F17.200 Nicotine dependence, unspecified, uncomplicated; J44.9 Chronic obstructive pulmonary disease, unspecified; G47.33 Obstructive sleep apnea (adult) (pediatric); E78.5 Hyperlipidemia, unspecified; Z79.01 Long term (current) use of anticoagulants; E66.9 Obesity, unspecified; Z68.32 Body mass index [BMI] 32.0-32.9, adult; I87.2 Venous insufficiency (chronic) (peripheral); Z86.718 Personal history of other venous thrombosis and embolism; B96.20 Unspecified Escherichia coli [E. coli] as the cause of diseases classified elsewhere; B95.2 Enterococcus as the cause of diseases classified elsewhere
CPT/HCPCS: 36415; 71045; 74177; 80048; 80053; 80202; 82565; 83735; 84436; 84443; 84520; 85014; 85018; 85025; 85610; 85730; 87070; 87075; 93005; 93970; 94660; 96374; 96375; 96376; J0690; J1100; J1170; J2250; J2270; J2405; J2543; J2710; J3010; J3370; J3480; J7030; J7040; J7042; J7050; Q9967

== ENCOUNTER → 2018-11-06 | Outpatient (CLI) | payer BC ==
[~2018-11-06] MED LIST changes: -CEFAZOLIN 1 GM INJ ONE; -FENTAnyl 50 MCG/ML VIAL ONE; -ROCURONIUM 50 MG INJ ONE; +SIMV40TA2 PO; -SUCCINYLCHOLINE CHLORIDE 100 MG/5 ML SYG IV ONE; +WARF10TA PO; +WARF2.5T PO
== END | disposition home or self-care (01) ==
LOC: LAB 08:23
PROVIDERS: ATTEND Internal Medicine
DX: D68.59 Other primary thrombophilia (principal)
CPT/HCPCS: 85610

== ENCOUNTER → 2018-11-10 | Outpatient (CLI) | payer BC | END | disposition home or self-care (01) | LOC: LAB 11:35 | PROVIDERS: ATTEND Internal Medicine | DX: D68.59 Other primary thrombophilia (principal); Z79.01 Long term (current) use of anticoagulants | CPT/HCPCS: 85610 ==

== ENCOUNTER → 2019-03-09 | Outpatient (CLI) | payer BC | END | disposition home or self-care (01) | LOC: LAB 09:16 | PROVIDERS: ATTEND Internal Medicine | DX: E78.5 Hyperlipidemia, unspecified (principal); E55.9 Vitamin D deficiency, unspecified; D68.59 Other primary thrombophilia; R73.03 Prediabetes | CPT/HCPCS: 80053; 80061; 82306; 83036; 85025; 85610 ==